=== PATIENT | male | born 1945 | race Caucasian/White ===

== ENCOUNTER 2016-10-31 19:16 | Inpatient (IN) | payer MEDICARE, MEDICAID ==
--- NOTE | 2016-10-31 19:59 | ED Physician Chart ---
Chief Complaint/HPI - Patient Information Date Seen:: 10/31/16 Time Seen:: 19:54 Chief Complaint:: confusion History of Present Illness:: THIS IS A 71 YO MALE WITH ALTERED MENTAL STATUS PATIENT.HE HAS POOR AFFECT WITH A PSYCH DISORDER SENT FROM A HALFWAY FOR EVALUATION AND TREATMENT. HE DENIES HAVING ANY PAIN OR DIFFICULTY THINKING. Allergies:: Allergies Allergy/AdvReac Type Severity Reaction Status Date / Time codeine Allergy Verified 10/31/16 19:33 Vitals:: Vital Signs - 8 hr 10/31/16 19:20 Temp 99.3 F HR 83 RR 20 BP 195/104 O2 Sat % 97 Historian:: Patient, EMS, Medical Records Review:: Nurse's Note Reviewed, Old Chart Reviewed, Transfer documents Reviewed Review of Systems - Review of Systems General/Constitutional: No fever, No chills, No weight loss, No weakness, No diaphoresis, No edema, No loss of appetite Skin: No skin lesions, No rash, No bruising, Other (THERE ARE (8) SARI ON THE SCALP FROM A RECENT LACERATION.) Head: No headache, No light-headedness Eyes: No loss of vision, No pain, No diplopia ENT: No earache, No nasal drainage, No sore throat, No tinnitus Neck: No neck pain, No swelling, No thyromegaly, No stiffness, No mass noted Cardio Vascular: No chest pain, No palpitations, No PND, No orthopnea, No edema Pulmonary: No SOB, No cough, No sputum, No wheezing GI: No nausea, No vomiting, No diarrhea, No pain, No melena, No hematochezia, No constipation, No hematemesis G/U: No dysuria, No frequency, No hematuria Musculoskeletal: No bone or joint pain, No back pain, No muscle pain Endocrine: No polyuria, No polydipsia Psychiatric: Prior psych history, No depression, No anxiety, No suicidal ideation, Other (PSYCHOSIS) Hematopoietic: No bruising, No lymphadenopathy Allergic/Immuno: No urticaria, No angioedema Neurological: No syncope, No focal symptoms, No weakness, No paresthesia, No headache, No seizure, No dizziness, No confusion, No vertigo Past Medical History - Past Medical History Obtainable: Yes Past Medical History: HTN, DM, CAD, Dementia Family History: None Social History: Non Smoker, No Alcohol, No Drug Use, Care Facility Surgical History: None Psychiatricy History: Dementia Medication: Reviewed Family Medical History - Family Member Mother History Unknown: Yes Physical Exam - Physical Examination General/Constitutional: Awake, Well-developed, well-nourished, Alert, No distress, GCS 15, Non-toxic appearing, Ambulatory Head: Atraumatic Eyes: Lids, conjuctiva normal, PERRL, EOMI Skin: Nl inspection, No rash, No skin lesions, No ecchymosis, Well hydrated, No lymphadenopathy ENMT: External ears, nose nl, Nasal exam nl, Lips, teeth, gums nl Neck: Nontender, Full ROM w/o pain, No JVD, No nuchal rigidity, No bruit, No mass, No stridor Respiratory: Nl effort/Exclusion, Clear to Auscultation, No Wheeze/Rhonchi/Rales Cardio Vascular: RRR, No murmur, gallop, rubs, NL S1 S2 GI: No tenderness/rebounding/guarding, No organomegaly, No hernia, Normal BS's, Nondistended, No mass/bruits, No McBurney tenderness : No CVA tenderness Extremities: No tenderness or effusion, Full ROM, normal strength in all extremities, No edema, Normal digits & nails Neuro/Psych: DTR's symmetric, Normal sensory exam, Normal motor strength, Mood normal, Normal gait, No focal deficits Other Neuro/Psych comments:: THE PATIENT IS DISORIENTED TIMES FOUR AND HAVE MOMENT OF CONFUSION. Misc: normal gait, Normal back, No paraspinal tenderness Labs/Radiology/EKG Results - Lab Results Results: Abnormal Lab Results 10/31/16 10/31/16 10/31/16 20:01 20:01 20:01 WBC 11.8 H RBC 4.88 Hgb 15.1 Hct 45.7 MCV 93.7 MCH 31.0 MCHC Differential 33.1 RDW 12.1 Plt Count 268 MPV 8.2 Neutrophils % 78.2 Lymphocytes % 12.8 L Monocytes % 6.5 Eosinophils % 1.3 Basophils % 1.2 PT INR PTT (Actin FS) Sodium 136 Potassium 3.8 Chloride 103 Carbon Dioxide 26.3 Anion Gap 10.5 BUN 11 Creatinine 0.7 Est GFR ( Amer) TNP Est GFR (Non-Af Amer) TNP BUN/Creatinine Ratio 15.7 Glucose 191 H POC Glucose Hemoglobin A1c % Calcium 9.8 Total Bilirubin 0.6 AST 17 ALT 26 Alkaline Phosphatase 86 Troponin I Total Protein 7.0 Albumin 3.9 L Globulin 3.1 Albumin/Globulin Ratio 1.3 Triglycerides 124 Cholesterol 155 LDL Cholesterol Direct 109 HDL Cholesterol 35 TSH Urine Source Urine Color Urine Clarity Urine pH Ur Specific Crete Urine Protein Urine Glucose (UA) Urine Ketones Urine Blood Urine Nitrate Urine Bilirubin Urine Urobilinogen Ur Leukocyte Esterase Urine RBC Urine WBC Ur Epithelial Cells Urine Bacteria RPR 10/31/16 10/31/16 10/31/16 20:01 20:01 20:01 WBC RBC Hgb Hct MCV MCH MCHC Differential RDW Plt Count MPV Neutrophils % Lymphocytes % Monocytes % Eosinophils % Basophils % PT 9.9 INR 0.95 PTT (Actin FS) 24.3 L Sodium Potassium Chloride Carbon Dioxide Anion Gap BUN Creatinine Est GFR ( Amer) Est GFR (Non-Af Amer) BUN/Creatinine Ratio Glucose POC Glucose Hemoglobin A1c % Calcium Total Bilirubin AST ALT Alkaline Phosphatase Troponin I < 0.01 L Total Protein Albumin Globulin Albumin/Globulin Ratio Triglycerides Cholesterol LDL Cholesterol Direct HDL Cholesterol TSH 0.94 Urine Source Urine Color Urine Clarity Urine pH Ur Specific [place] Urine Protein Urine Glucose (UA) Urine Ketones Urine Blood Urine Nitrate Urine Bilirubin Urine Urobilinogen Ur Leukocyte Esterase Urine RBC Urine WBC Ur Epithelial Cells Urine Bacteria RPR 10/31/16 10/31/16 10/31/16 20:01 20:01 20:06 WBC RBC Hgb Hct MCV MCH MCHC Differential RDW Plt Count MPV Neutrophils % Lymphocytes % Monocytes % Eosinophils % Basophils % PT INR PTT (Actin FS) Sodium Potassium Chloride Carbon Dioxide Anion Gap BUN Creatinine Est GFR ( Amer) Est GFR (Non-Af Amer) BUN/Creatinine Ratio Glucose POC Glucose 176 H Hemoglobin A1c % 7.2 H Calcium Total Bilirubin AST ALT Alkaline Phosphatase Troponin I Total Protein Albumin Globulin Albumin/Globulin Ratio Triglycerides Cholesterol LDL Cholesterol Direct HDL Cholesterol TSH Urine Source Urine Color Urine Clarity Urine pH Ur Specific [place] Urine Protein Urine Glucose (UA) Urine Ketones Urine Blood Urine Nitrate Urine Bilirubin Urine Urobilinogen Ur Leukocyte Esterase Urine RBC Urine WBC Ur Epithelial Cells Urine Bacteria RPR NONREACTIVE 10/31/16 23:00 WBC RBC Hgb Hct MCV MCH MCHC Differential RDW Plt Count MPV Neutrophils % Lymphocytes % Monocytes % Eosinophils % Basophils % PT INR PTT (Actin FS) Sodium Potassium Chloride Carbon Dioxide Anion Gap BUN Creatinine Est GFR ( Amer) Est GFR (Non-Af Amer) BUN/Creatinine Ratio Glucose POC Glucose Hemoglobin A1c % Calcium Total Bilirubin AST ALT Alkaline Phosphatase Troponin I Total Protein Albumin Globulin Albumin/Globulin Ratio Triglycerides Cholesterol LDL Cholesterol Direct HDL Cholesterol TSH Urine Source CLEAN C Urine Color YELLOW Urine Clarity CLEAR Urine pH 7.0 Ur Specific [place] 1.015 Urine Protein NEGATIVE Urine Glucose (UA) NEGATIVE Urine Ketones NEGATIVE Urine Blood NEGATIVE Urine Nitrate NEGATIVE Urine Bilirubin NEGATIVE Urine Urobilinogen 0.2 Ur Leukocyte Esterase NEGATIVE Urine RBC 0-2 H Urine WBC 0-2 Ur Epithelial Cells OCCASIONAL Urine Bacteria OCCASIONAL RPR - Radiology Results Results: CHEST X-RAY = NAD Assessment - Assessment General Assessment: PSYCHOSIS ED Septic Shock - . Is Septic Shock (SBP<90, OR Lactate>4 mmol\L) present?: No - <6hrs of presentation: Vital Signs: Vital Signs - 8 hr 10/31/16 19:20 Temp 99.3 F HR 83 RR 20 BP 195/104 O2 Sat % 97 Reassessment (Disposition) - Reassessment Reassessment Condition:: Improved - Diagnosis Diagnosis:: PSYCHOSIS - Patient Disposition Discharge/Transfer:: Acute Care w/in this hosp Admitting Medical Physician:: Niles Yun Admitting Psych Physician:: iKm Andrea Condition at Disposition:: Improved ED Discharge Plan - Patient Disposition Admit/Discharge/Transfer: Other Care w/in this hosp Condition at Disposition: Improved
[2016-10-31 20:12] LABS: % BASOPHILS 1.2 % (0.0-2.0); % EOSINOPHILS 1.3 % (0.0-5.0); % LYMPHOCYTES 12.8 % (20.0-50.0); % MONOCYTES 6.5 % (2.0-10.0); % NEUTROPHILS 78.2 % (40.0-80.0); HEMATOCRIT 45.7 % (39.0-49.0); HEMOGLOBIN 15.1 gm/dL (12.6-17.4); MEAN CELL VOLUME 93.7 fl (80-99); MEAN CORPUSCULAR HGB CONC 33.1 pg (28.0-36.0); MEAN PLATELET VOLUME 8.2 fl; NEUTROPHILE ABSOLUTE 9.2 Th/cmm (1.8-8.0); PLATELET COUNT 268 Th/cmm (150-400); RED BLOOD COUNT 4.88 Mil/cmm (3.80-5.80); RED CELL DISTRIBUTION WIDTH 12.1 % (11.5-20.0); WHITE BLOOD COUNT 11.8 Th/cmm (4.8-10.8)
[2016-10-31 20:27] LABS: INR 0.95 (0.5-1.4); PROTHROMBIN TIME (TEST) 9.9 SECONDS (9.5-11.5)
[2016-10-31] MEDS ORDERED: NIFEdipine 30 mg ER Tab PO ONE (20:27)
[2016-10-31 20:28] LABS: CHOLESTEROL 155 mg/dL (<200); TRIGLYCERIDES 124 mg/dL (<150)
[2016-10-31 20:30] LABS: ALB/GLOB RATIO 1.3 (1.0-1.8); ALKALINE PHOSPHATASE 86 U/L (34-104); ANION GAP 10.5 (7.0-16.0); BILIRUBIN,TOTAL 0.6 mg/dL (0.3-1.0); BUN - UREA NITROGEN 11 mg/dL (7-25); BUN/CREATININE RATIO 15.7; CALCIUM SERUM 9.8 mg/dL (8.6-10.3); CARBON DIOXIDE 26.3 mEq/L (21.0-31.0); CHLORIDE 103 mEq/L (98-107); CREATININE - SERUM 0.7 mg/dL (0.7-1.3); GLUCOSE 191 mg/dL (70-105); POTASSIUM SERUM 3.8 mEq/L (3.5-5.1); SGOT 17 U/L (13-39); SGPT/ALT 26 U/L (7-52); SODIUM SERUM 136 mEq/L (136-145)
[2016-10-31 23:20] LABS: URINE BILIRUBIN NEGATIVE (NEGATIVE); URINE COLOR YELLOW; URINE GLUCOSE (UA) NEGATIVE (NEGATIVE); URINE KETONE NEGATIVE (NEGATIVE)
[2016-10-31 23:21] LABS: URINE BACTERIA OCCASIONAL /hpf (NONE SEEN); URINE BLOOD NEGATIVE (NEGATIVE); URINE EPITHELIAL CELLS OCCASIONAL /lpf (FEW); URINE PROTEIN NEGATIVE (NEGATIVE); URINE RBC 0-2 /hpf (0-5); URINE UROBILINOGEN 0.2 E.U./dL (0.2 - 1.0); URINE WBC 0-2 /hpf (0-5)
[2016-10-31] MEDS ORDERED: Magnesium Hydroxide (MOM) 30 mL UDC PO PRN (23:55)
[2016-10-31] MEDS ORDERED: Maalox 30 mL Cup PO PRN (23:55)
--- NOTE | 2016-11-01 00:07 | Admit Criteria Form ---
Admit Criteria Forms - Admit Criteria Diagnosis: MENTAL STATUS CHANGE Clinical Indications for Inpatient Care (Place 'X' for any and all applicable criteria): Ongoing inpatient care may be needed for 1 or more of the following(1)(2)(3)(5)( 6): [X ]I. Suspected serious etiology (eg, medical disorder, HOUSE MOVING SUPERVISOR event) of altered mental status [ ]II. Danger to self or others not manageable at lower level of care [ ]III. Grave disability (eg, inability to perform self care necessary at lower level of care) [ ]IV. Agitation or inappropriate behavior interfering with care for primary condition (eg, attempting to discontinue lines or drains prematurely, unable to cooperate with respiratory care) [ ]V. Delirium [A] [D][E] as described by 1 or more of the following(26): [ ]a) Delirium due to alcohol or sedative [F] withdrawal [ ]b) Delirium of uncertain etiology that has not responded to appropriate empiric treatment [ ]c) Delirium that prevents performance of a life-sustaining function (eg, feeding or hydrating oneself) [ ]. General contraindications and/or Inappropriate clinical situations for Observational Care in patients with Mental Status Change, when ANY ONE of the following is required: [ ]a) Prediction of prolongation of LOS based on ANY ONE of the following may be considered as a contraindication for observational care 2, 3, 4, 5, 6, 7, 8, 9, 10, 11 [ ]i) Age > 65 yrs. [ ]ii) Patient arriving by ambulance [ ]iii) Patient with high acuity [ ]iv) Patient requiring vital sign monitoring [ ]v) Patient on IV medication [ ]b) Systolic blood pressures greater than or equal to 180mmHg 3, 12 [ ]c) Patient with altered mental status including delirium and other alteration of consciousness, (3) [ ]d) Patient whose discharge disposition will be to a senior living home or rehabilitation home should not be managed in Emergency Department Observation Unit. CMS rule requires 3 days hospital stay before such placement.3,13 [ ]e) Patient with failure to thrive due to broad array of etiologies 3,16,17 [ ]f) Inability to ambulate 3,14 Extended stay beyond goal length of stay for the primary condition may be needed until ALL of the following are present(3)(5): [ ]a) Underlying medical etiology of mental status change is absent, or has been established and adequately treated [ ]b) Danger to self or others is absent or manageable at lower level of care. [ ]c) Behavior crisis management, including physical or chemical restraints, is not required or available at lower level of car [ ]d) Substance or alcohol withdrawal is absent or manageable at lower level of care. [ ]e) Behavioral symptoms (eg, agitation, somnolence, inappropriate behavior) are absent, or are manageable at lower level of care. The original [facility] content created by [facility] has been revised. The portions of the content which have been revised are identified through the use of italic text or in bold, and [facility] has neither reviewed nor approved the modified material. All other unmodified content is copyright [facility]. Please see references footnoted in the original [facility] edition 2016 Admit Criteria Met?: Yes
[2016-11-01] MEDS: INSULIN ASPART SLIDING SCALE 100 UNITS/ML UNIT SUBQ SCH ×4 (06:43→20:48)
[2016-11-01] MEDS: Multivitamin Tab PO SCH (08:51)
[2016-11-01] MEDS: Insulin Detemir 100 units/mL 10mL Vial SUBQ SCH (08:51)
--- NOTE | 2016-11-01 09:47 | Diagnostic Imaging Report ---
Portable chest x-ray History: Shortness of breath Allowing for portable technique the heart size is normal. No focal pulmonary parenchymal processes. No hilar or mediastinal abnormalities. Impression: No acute abnormalities.
--- NOTE | 2016-11-01 10:48 | History and Physical ---
History of Present Illness - HPI Chief Complaint: CONFUSION HPI: This is a 71 year old male who is a resident of [facility] who is brought here to [facility] for a 1 day history of altered mental status with increase confusion, for these reasons patient is now admitted to the Geropsych unit. Vital Signs: Last Vital Signs Temp 97.8 F 11/01/16 06:44 Pulse 78 11/01/16 06:44 Resp 20 11/01/16 06:44 BP 116/62 11/01/16 06:44 Pulse Ox 95 11/01/16 06:44 Past Medical History Cardiovascular: Report: CAD, HTN Pulmonary: Report: No Pertinent Hx COMMUNICATION LECTURER: Report: No Pertinent Hx GI: Report: No Pertinent Hx Psych: Report: Psychosis, Other (dementia) Musculoskeletal: Report: No Pertinent Hx Rheumatologic: Report: No pertinent Hx Infectious Disease: Report: No Pertinent Hx Renal/: Report: No Pertinent Hx Endocrine: Report: Diabetes - Past Surgical History Past Surgical History: No pertinent Hx Family Medical History - Family Member Mother History Unknown: Yes (noncontributory) Ethnicity: Unknown Living Status: Unknown Hx Family Cancer: (unknown) Hx Family Coronary Artery Disease: (unknown) Hx Family Congestive Heart Failure: (unknown) Hx Family Hypertension: (unknown) Hx Family Stroke: (unknown) Hx Family Diabetes: (unknown) Hx Family Seizures: (unknown) Hx Family Dementia: (unknown) Hx Family AIDS: (unknown) Hx Family COPD: (unknown) Hx Family Hepatitis: (unknown) Hx Family Psychiatric Problems: (unknown) Hx Family Tuberculosis: (unknown) Social History Smoke: No Alcohol: None Drugs: None Lives: Long Term Domestic Violence: Negative Health Maintenance Health Maintenance: Pneumococcal Vaccine - Medications Home Medications: Home Medication Medication Instructions Recorded Type Carvedilol [Coreg] 12.5 mg PO BID 10/31/16 History Diltiazem HCl [Diltiazem HCl] 360 mg PO DAILY 10/31/16 History Hydralazine [Apresoline] 10 mg PO BID 10/31/16 History Hydrochlorothiazide 12.5 mg PO DAILY 10/31/16 History Insulin Aspart, Recombinant See Protocol SUBQ ACHS PRN 10/31/16 History [NovoLOG] Insulin Glargine,Hum.rec.anlog 11 unit SQ DAILY 10/31/16 History [Lantus Solostar] Multivitamin w/ Minerals 1 tab PO DAILY 10/31/16 History [Theragran M] Potassium Chloride 10 meq PO BID 10/31/16 History Quinapril HCl [Quinapril HCl] 40 mg PO DAILY 10/31/16 History Tramadol HCl [Ultram] 25 mg PO Q4HR PRN 10/31/16 History Tramadol HCl [Ultram] 50 mg PO Q4HR PRN 10/31/16 History metFORMIN [Glucophage] 500 mg PO BID 10/31/16 History - Allergies Allergies/Adverse Reactions: Allergies Allergy/AdvReac Type Severity Reaction Status Date / Time codeine Allergy Verified 10/31/16 19:33 Review of Systems - Review of Systems Constitutional: Denies: Fever, Chills Eyes: Denies: Pain, Vision Change ENT: Denies: Ear Pain, Ear Discharge, Nose Pain, Nose Discharge Respiratory: Denies: Cough, Dry, Shortness of Breath Cardiovascular: Denies: Chest Pain, Palpitations, Orthopnea Gastrointestinal: Denies: Nausea, Vomiting, Abdominal Pain, Diarrhea Genitourinary: Denies: Dysuria, Frequency Musculoskeletal: Denies: Neck Pain, Shoulder Pain, Arm Pain Skin: Denies: Rash Neurological: Report: Confusion. Denies: Weakness, Numbness, Change in Speech Physical Exam - Physical Exam HEENT: Report: Ears Nose Throat Within Normal Limits, Pharnyx Within Normal Limits Neck: Report: WNL Cardiovascular Systems: Report: +s1/s2 noted, Regular, Rate and Rhythm, no murmurs noted Respiratory: Report: Clear to Auscultation of lung sanchez Abdomen: Report: Non-tender to palpation Extremities: Report: Non-tender to palpation. Skin: Report: Color of skin is within normal limits Neuro/Psych: Report: A+Ox3 (with confusion) - Lab Results All Lab Results last 24 hours: Laboratory Last Values WBC 11.8 Th/cmm (4.8-10.8) H 10/31/16 20:01 RBC 4.88 Mil/cmm (3.80-5.80) 10/31/16 20:01 Hgb 15.1 gm/dL (12.6-17.4) 10/31/16 20:01 Hct 45.7 % (39.0-49.0) 10/31/16 20:01 MCV 93.7 fl (80-99) 10/31/16 20: MCH 31.0 pg (27.0-31.0) 10/31/16 20: MCHC Differential 33.1 pg (28.0-36.0) 10/31/16 20: RDW 12.1 % (11.5-20.0) 10/31/16 20:01 Plt Count 268 Th/cmm (150-400) 10/31/16 20: MPV 8.2 fl 10/31/16 20: Neutrophils % 78.2 % (40.0-80.0) 10/31/16 20: Lymphocytes % 12.8 % (20.0-50.0) L 10/31/16 20: Monocytes % 6.5 % (2.0-10.0) 10/31/16 20: Eosinophils % 1.3 % (0.0-5.0) 10/31/16 20: Basophils % 1.2 % (0.0-2.0) 10/31/16 20: PT 9.9 SECONDS (9.5-11.5) 10/31/16 20: INR 0.95 (0.5-1.4) 10/31/16 20: PTT (Actin FS) 24.3 SECONDS (26.0-38.0) L 10/31/16 20:01 Sodium 136 mEq/L (136-145) 10/31/16 20:01 Potassium 3.8 mEq/L (3.5-5.1) 10/31/16 20: Chloride 103 mEq/L (98-107) 10/31/16 20: Carbon Dioxide 26.3 mEq/L (21.0-31.0) 10/31/16 20: Anion Gap 10.5 (7.0-16.0) 10/31/16 20: BUN 11 mg/dL (7-25) 10/31/16 20: Creatinine 0.7 mg/dL (0.7-1.3) 10/31/16 20: Est GFR ( Amer) TNP 10/31/16 20: Est GFR (Non-Af Amer) TNP 10/31/16 20: BUN/Creatinine Ratio 15.7 10/31/16 20:01 Glucose 191 mg/dL (70-105) H 10/31/16 20:01 POC Glucose 203 MG/DL (70 - 105) H 11/01/16 06:39 Hemoglobin A1c % 7.2 % (4.0-6.0) H 10/31/16 20:01 Calcium 9.8 mg/dL (8.6-10.3) 10/31/16 20:01 Total Bilirubin 0.6 mg/dL (0.3-1.0) 10/31/16 20:01 AST 17 U/L (13-39) 10/31/16 20:01 ALT 26 U/L (7-52) 10/31/16 20:01 Alkaline Phosphatase 86 U/L (34-104) 10/31/16 20:01 Troponin I < 0.01 ng/mL (0.01-0.05) L 10/31/16 20:01 Total Protein 7.0 gm/dL (6.0-8.3) 10/31/16 20:01 Albumin 3.9 gm/dL (4.2-5.5) L 10/31/16 20:01 Globulin 3.1 gm/dL 10/31/16 20:01 Albumin/Globulin Ratio 1.3 (1.0-1.8) 10/31/16 20:01 Triglycerides 124 mg/dL (<150) 10/31/16 20:01 Cholesterol 155 mg/dL (<200) 10/31/16 20:01 LDL Cholesterol Direct 109 mg/dL (75-193) 10/31/16 20:01 HDL Cholesterol 35 mg/dL (23-92) 10/31/16 20:01 TSH 0.94 uIU/ml (0.34-5.60) 10/31/16 20:01 Urine Source CLEAN C 10/31/16 23:00 Urine Color YELLOW 10/31/16 23:00 Urine Clarity CLEAR (CLEAR) 10/31/16 23:00 Urine pH 7.0 10/31/16 23:00 Ur Specific [place] 1.015 (1.005-1.030) 10/31/16 23:00 Urine Protein NEGATIVE mg/dL (NEGATIVE) 10/31/16 23:00 Urine Glucose (UA) NEGATIVE mg/dL (NEGATIVE) 10/31/16 23:00 Urine Ketones NEGATIVE mg/dL (NEGATIVE) 10/31/16 23:00 Urine Blood NEGATIVE (NEGATIVE) 10/31/16 23:00 Urine Nitrate NEGATIVE (NEGATIVE) 10/31/16 23:00 Urine Bilirubin NEGATIVE (NEGATIVE) 10/31/16 23:00 Urine Urobilinogen 0.2 E.U./dL (0.2 - 1.0) 10/31/16 23:00 Ur Leukocyte Esterase NEGATIVE (NEGATIVE) 10/31/16 23:00 Urine RBC 0-2 /hpf (0-5) H 10/31/16 23:00 Urine WBC 0-2 /hpf (0-5) 10/31/16 23:00 Ur Epithelial Cells OCCASIONAL /lpf (FEW) 10/31/16 23:00 Urine Bacteria OCCASIONAL /hpf (NONE SEEN) 10/31/16 23:00 RPR NONREACTIVE (NONREACTIVE) 10/31/16 20:01 Laboratory Results - last 24 hr 11/01/16 06:39 POC Glucose 203 H - Assessment Assessment: HTN CAD DM-2 DEMENTIA PSYCHOSIS - Plan Plan: continue patients bp medications monitor for s/sx of hypo/hyperglycemia fall precautions psych to follow patient continue current plan of care
[2016-11-02] MEDS: INSULIN ASPART SLIDING SCALE 100 UNITS/ML UNIT SUBQ SCH ×4 (06:40→20:37)
[2016-11-02] MEDS ORDERED: QUINAPRIL HCL 40 MG PO SCH (09:00)
[2016-11-02] MEDS: Multivitamin Tab PO SCH (09:04)
[2016-11-02] MEDS: Diltiazem CD 180 mg C24 PO SCH (09:04)
[2016-11-02] MEDS: Insulin Detemir 100 units/mL 10mL Vial SUBQ SCH (09:18)
[2016-11-03] MEDS: INSULIN ASPART SLIDING SCALE 100 UNITS/ML UNIT SUBQ SCH ×4 (06:33→21:40)
--- NOTE | 2016-11-03 09:39 | General Progress Note ---
Subjective - Review of Systems Subjective: Patient isn't examined. Patient's lying comfortable. Patient denies any chest pain, shortness of breath, palpitation, dizziness, headache, diarrhea, hematuria , seizure. Objective - Results Result Diagrams: 10/31/16 20:10/31/16 20: Recent Labs: Laboratory Last Values WBC 11.8 Th/cmm (4.8-10.8) H 10/31/16 20: RBC 4.88 Mil/cmm (3.80-5.80) 10/31/16 20: Hgb 15.1 gm/dL (12.6-17.4) 10/31/16 20: Hct 45.7 % (39.0-49.0) 10/31/16: MCV 93.7 fl (80-99) 10/31/16 20: MCH 31.0 pg (27.0-31.0) 10/31/16: MCHC Differential 33.1 pg (28.0-36.0) 10/31/16 20: RDW 12.1 % (11.5-20.0) 10/31/16 20: Plt Count 268 Th/cmm (150-400) 10/31/16 20: MPV 8.2 fl 10/31/16 20: Neutrophils % 78.2 % (40.0-80.0) 10/31/16 20: Lymphocytes % 12.8 % (20.0-50.0) L 10/31/16 20: Monocytes % 6.5 % (2.0-10.0) 10/31/16 20: Eosinophils % 1.3 % (0.0-5.0) 10/31/16 20: Basophils % 1.2 % (0.0-2.0) 10/31/16 20: PT 9.9 SECONDS (9.5-11.5) 10/31/16 20: INR 0.95 (0.5-1.4) 10/31/16 20: PTT (Actin FS) 24.3 SECONDS (26.0-38.0) L 10/31/16 20: Sodium 136 mEq/L (136-145) 10/31/16 20: Potassium 3.8 mEq/L (3.5-5.1) 10/31/16 20:01 Chloride 103 mEq/L (98-107) 10/31/16 20:01 Carbon Dioxide 26.3 mEq/L (21.0-31.0) 10/31/16 20:01 Anion Gap 10.5 (7.0-16.0) 10/31/16 20:01 BUN 11 mg/dL (7-25) 10/31/16 20:01 Creatinine 0.7 mg/dL (0.7-1.3) 10/31/16 20:01 Est GFR ( Amer) TNP 10/31/16 20:01 Est GFR (Non-Af Amer) TNP 10/31/16 20:01 BUN/Creatinine Ratio 15.7 10/31/16 20:01 Glucose 191 mg/dL (70-105) H 10/31/16 20:01 POC Glucose 138 MG/DL (70 - 105) H 11/03/16 06:14 Hemoglobin A1c % 7.2 % (4.0-6.0) H 10/31/16 20:01 Calcium 9.8 mg/dL (8.6-10.3) 10/31/16 20:01 Total Bilirubin 0.6 mg/dL (0.3-1.0) 10/31/16 20:01 AST 17 U/L (13-39) 10/31/16 20:01 ALT 26 U/L (7-52) 10/31/16 20:01 Alkaline Phosphatase 86 U/L (34-104) 10/31/16 20:01 Troponin I < 0.01 ng/mL (0.01-0.05) L 10/31/16 20:01 Total Protein 7.0 gm/dL (6.0-8.3) 10/31/16 20:01 Albumin 3.9 gm/dL (4.2-5.5) L 10/31/16 20:01 Globulin 3.1 gm/dL 10/31/16 20:01 Albumin/Globulin Ratio 1.3 (1.0-1.8) 10/31/16 20:01 Triglycerides 124 mg/dL (<150) 10/31/16 20:01 Cholesterol 155 mg/dL (<200) 10/31/16 20:01 LDL Cholesterol Direct 109 mg/dL (75-193) 10/31/16 20:01 HDL Cholesterol 35 mg/dL (23-92) 10/31/16 20:01 TSH 0.94 uIU/ml (0.34-5.60) 10/31/16 20:01 Urine Source CLEAN C 10/31/16 23:00 Urine Color YELLOW 10/31/16 23:00 Urine Clarity CLEAR (CLEAR) 10/31/16 23:00 Urine pH 7.0 10/31/16 23:00 Ur Specific [place] 1.015 (1.005-1.030) 10/31/16 23:00 Urine Protein NEGATIVE mg/dL (NEGATIVE) 10/31/16 23:00 Urine Glucose (UA) NEGATIVE mg/dL (NEGATIVE) 10/31/16 23:00 Urine Ketones NEGATIVE mg/dL (NEGATIVE) 10/31/16 23:00 Urine Blood NEGATIVE (NEGATIVE) 10/31/16 23:00 Urine Nitrate NEGATIVE (NEGATIVE) 10/31/16 23:00 Urine Bilirubin NEGATIVE (NEGATIVE) 10/31/16 23:00 Urine Urobilinogen 0.2 E.U./dL (0.2 - 1.0) 10/31/16 23:00 Ur Leukocyte Esterase NEGATIVE (NEGATIVE) 10/31/16 23:00 Urine RBC 0-2 /hpf (0-5) H 10/31/16 23:00 Urine WBC 0-2 /hpf (0-5) 10/31/16 23:00 Ur Epithelial Cells OCCASIONAL /lpf (FEW) 10/31/16 23:00 Urine Bacteria OCCASIONAL /hpf (NONE SEEN) 10/31/16 23:00 RPR NONREACTIVE (NONREACTIVE) 10/31/16 20:01 - Physical Exam Vitals and I&O: Vital Signs Temp 98.5 F 11/03/16 06:48 Pulse 63 11/03/16 06:48 Resp 18 11/03/16 06:48 BP 135/69 11/03/16 06:48 Pulse Ox 97 11/03/16 06:48 Intake & Output 11/02/16 11/03/16 11/03/16 18:59 06:59 18:59 Intake Total 1000 Balance 1000 Intake: Oral 1000 Other: # Voids 4 2 # Bowel Movements 1 Active Medications: Current Medications Acetaminophen (Tylenol) 650 mg PO Q4HR PRN PRN Reason: Mild Pain / Temp above 100 Stop: 12/30/16 23:54 Al Hydrox/Mg Hydrox/Simethicone (Maalox) 30 ml PO Q4HR PRN PRN Reason: GI DISTRESS Stop: 12/30/16 23:54 Carvedilol (Coreg) 12.5 mg PO BID [facility] Stop: 01/01/17 08:59 Last Admin: 11/02/16 16:54 Dose: Not Given Diltiazem HCl (Cardizem Cd) 360 mg PO DAILY [facility] Stop: 01/01/17 08:59 Last Admin: 11/02/16 09:04 Dose: 360 mg Hydralazine HCl (Apresoline) 10 mg PO BID [facility] Stop: 01/01/17 08:59 Last Admin: 11/02/16 16:54 Dose: Not Given Hydrochlorothiazide (Hctz) 12.5 mg PO DAILY [facility] Stop: 01/01/17 08:59 Last Admin: 11/02/16 09:04 Dose: 12.5 mg Insulin Aspart (Novolog Insulin Sliding Scale) 0 units SUBQ ACHS [facility] PRN Reason: Protocol Stop: 12/31/16 07:29 Last Admin: 11/03/16 06:33 Dose: Not Given Insulin Detemir (Levemir Insulin) 11 units SUBQ DAILY [facility] PRN Reason: Protocol Stop: 12/31/16 08:59 Last Admin: 11/02/16 09:18 Dose: 11 units Lisinopril (Zestril) 20 mg PO DAILY [facility] Stop: 01/01/17 08:59 Last Admin: 11/02/16 09:04 Dose: 20 mg Lorazepam (Ativan) 0.5 mg PO Q4HR PRN; Protocol PRN Reason: Anxiety Stop: 11/30/16 23:54 Magnesium Hydroxide (Milk Of Magnesia) 30 ml PO HS PRN PRN Reason: Constipation Metformin HCl (Glucophage) 500 mg PO BID [facility] Stop: 12/31/16 08:59 Last Admin: 11/02/16 17:20 Dose: 500 mg Multivitamins/Vitamin C (Theragran) 1 tab PO DAILY [facility] Stop: 12/31/16 08:59 Last Admin: 11/02/16 09:04 Dose: 1 tab Risperidone (Risperdal) 0.5 mg PO BID [facility] PRN Reason: Protocol Stop: 12/31/16 16:59 Last Admin: 11/02/16 17:20 Dose: 0.5 mg Tramadol HCl (Ultram) 25 mg PO Q4HR PRN PRN Reason: Pain (Moderate) Stop: 12/31/16 20:06 Tramadol HCl (Ultram) 50 mg PO Q4HR PRN PRN Reason: Pain (Severe) Stop: 12/31/16 20:06 Zolpidem Tartrate (Ambien) 5 mg PO HS PRN PRN Reason: Insomnia Stop: 12/30/16 23:54 General: Alert, No acute distress HEENT: Atraumatic, PERRLA, EOMI Neck: Supple Cardiovascular: Regular rate, Normal S1, Normal S2 Lungs: Clear to auscultation Abdomen: Bowel sounds, Soft, Other (no hepatosplenomegaly) Extremities: Other (no clubbing, cyanosis, edema.) Neurological: Normal speech, Cranial nerves 3-12 NL, Other (lower extremity weakness.) Skin: Significant lesion (dark pigmented lesions on both lower extremities.) Psych/Mental Status: Mood NL Assessment/Plan - Assessment Assessment: Diabetes mellitus. Hypertension. Coronary artery disease. Paroxysmal atrial fibrillation. DJD. Psychiatric disorder. Fall risk Debility - Plan Plan: Monitor glucose, vital signs, behavior. Sliding scale insulin. Oral hypoglycemic agent. Antihypertensive medications. Monitor for falls. General nursing care. Psychiatric medications and follow-up. Medications reviewed. Symptoms control. Physical therapy and occupational therapy. Care plan reviewed and discussed. Nutritional Asmnt/Malnutr-PDOC - Dietary Evaluation Malnutrition Findings (Please click <Entered> for more info): Nutritional Asmnt/Malnutrition Start: 11/01/16 12: 43 Text: Status: Complete Freq: Document 11/01/16 12:43 GSUN (Rec: 11/01/16 12:59 GSUN [email or web address]) Nutritional Asmnt/Malnutrition Patient General Information Nutritional Screening High Risk Screening Diagnosis Reason for visit: psychosis Pertinent Medical Hx/Surgical Hx CAD, HTN, psychosis, dementia, DM Subjective Information 71 year old male from SNF. Spoke to pt in laisha chair in rec room. Pt is a questionable historian, goes off topic, fell asleep mid sentence several times, inappropriate for nutrition edu. Pt stated good appetite, breakfast was great. Pt reported UBW 214lb, admitted to recent weight loss , however could not eleborate. Pt appeared overweight, no significant wasting noted. Current Diet Order/ Nutrition Support Ground, cardiac, Boost Glucose Control BID Pertinent Medications Maalox, Novolog, Levemir, MOM, Glucophage, Theragran Pertinent Labs /: A1c 7.2H, glucose 191H Nutritional Hx/Data Height 1.88 m Height (Calculated Centimeters) 188.0 Current Weight (lbs) 97.069 kg Weight (Calculated Kilograms) 97.1 Weight (Calculated Grams) 81481.8 Usual body Weight (lbs) 214 [place] Body Weight 190 Recent Weight Change Yes Weight Status Overweight GI Symptoms Cultural/Ethnic/Hindu Belief Pt dislikes spinach and cauliflower. Skin Integrity/Comment: Deangelo [place]cala. 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 Problem Problem Altered nturition related laboratory values related to Etiology DM aeb Signs/Symptoms: A1c 7.2, glucose 191H Intervention/Recommendation Comments 1. Recommend [id number] in addition to current diet order . Expected Outcomes/Goals Expected Outcomes/Goals 1. PO intake to meet at least 75% of estimated nutritional needs.
[2016-11-03] MEDS: Multivitamin Tab PO SCH (09:40)
[2016-11-03] MEDS: Diltiazem CD 180 mg C24 PO SCH (09:41)
[2016-11-03] MEDS: Insulin Detemir 100 units/mL 10mL Vial SUBQ SCH (09:51)
[2016-11-04] MEDS: INSULIN ASPART SLIDING SCALE 100 UNITS/ML UNIT SUBQ SCH ×4 (07:07→21:21)
--- NOTE | 2016-11-04 09:03 | General Progress Note ---
Subjective - Review of Systems Subjective: Patient isn't examined. Patient's lying comfortable. Patient denies any chest pain, shortness of breath, palpitation, dizziness, headache, diarrhea, hematuria , seizure. Objective - Results Result Diagrams: 10/31/16 20:10/31/16 20: Recent Labs: Laboratory Last Values WBC 11.8 Th/cmm (4.8-10.8) H 10/31/16 20: RBC 4.88 Mil/cmm (3.80-5.80) 10/31/16 20: Hgb 15.1 gm/dL (12.6-17.4) 10/31/16 20: Hct 45.7 % (39.0-49.0) 10/31/16: MCV 93.7 fl (80-99) 10/31/16 20: MCH 31.0 pg (27.0-31.0) 10/31/16: MCHC Differential 33.1 pg (28.0-36.0) 10/31/16 20: RDW 12.1 % (11.5-20.0) 10/31/16 20: Plt Count 268 Th/cmm (150-400) 10/31/16 20: MPV 8.2 fl 10/31/16 20: Neutrophils % 78.2 % (40.0-80.0) 10/31/16 20: Lymphocytes % 12.8 % (20.0-50.0) L 10/31/16 20: Monocytes % 6.5 % (2.0-10.0) 10/31/16 20: Eosinophils % 1.3 % (0.0-5.0) 10/31/16 20: Basophils % 1.2 % (0.0-2.0) 10/31/16 20: PT 9.9 SECONDS (9.5-11.5) 10/31/16 20: INR 0.95 (0.5-1.4) 10/31/16 20: PTT (Actin FS) 24.3 SECONDS (26.0-38.0) L 10/31/16 20: Sodium 136 mEq/L (136-145) 10/31/16 20: Potassium 3.8 mEq/L (3.5-5.1) 10/31/16 20:01 Chloride 103 mEq/L (98-107) 10/31/16 20:01 Carbon Dioxide 26.3 mEq/L (21.0-31.0) 10/31/16 20:01 Anion Gap 10.5 (7.0-16.0) 10/31/16 20:01 BUN 11 mg/dL (7-25) 10/31/16 20:01 Creatinine 0.7 mg/dL (0.7-1.3) 10/31/16 20:01 Est GFR ( Amer) TNP 10/31/16 20:01 Est GFR (Non-Af Amer) TNP 10/31/16 20:01 BUN/Creatinine Ratio 15.7 10/31/16 20:01 Glucose 191 mg/dL (70-105) H 10/31/16 20:01 POC Glucose 142 MG/DL (70 - 105) H 11/04/16 05:34 Hemoglobin A1c % 7.2 % (4.0-6.0) H 10/31/16 20:01 Calcium 9.8 mg/dL (8.6-10.3) 10/31/16 20:01 Total Bilirubin 0.6 mg/dL (0.3-1.0) 10/31/16 20:01 AST 17 U/L (13-39) 10/31/16 20:01 ALT 26 U/L (7-52) 10/31/16 20:01 Alkaline Phosphatase 86 U/L (34-104) 10/31/16 20:01 Troponin I < 0.01 ng/mL (0.01-0.05) L 10/31/16 20:01 Total Protein 7.0 gm/dL (6.0-8.3) 10/31/16 20:01 Albumin 3.9 gm/dL (4.2-5.5) L 10/31/16 20:01 Globulin 3.1 gm/dL 10/31/16 20:01 Albumin/Globulin Ratio 1.3 (1.0-1.8) 10/31/16 20:01 Triglycerides 124 mg/dL (<150) 10/31/16 20:01 Cholesterol 155 mg/dL (<200) 10/31/16 20:01 LDL Cholesterol Direct 109 mg/dL (75-193) 10/31/16 20:01 HDL Cholesterol 35 mg/dL (23-92) 10/31/16 20:01 TSH 0.94 uIU/ml (0.34-5.60) 10/31/16 20:01 Urine Source CLEAN C 10/31/16 23:00 Urine Color YELLOW 10/31/16 23:00 Urine Clarity CLEAR (CLEAR) 10/31/16 23:00 Urine pH 7.0 10/31/16 23:00 Ur Specific [place] 1.015 (1.005-1.030) 10/31/16 23:00 Urine Protein NEGATIVE mg/dL (NEGATIVE) 10/31/16 23:00 Urine Glucose (UA) NEGATIVE mg/dL (NEGATIVE) 10/31/16 23:00 Urine Ketones NEGATIVE mg/dL (NEGATIVE) 10/31/16 23:00 Urine Blood NEGATIVE (NEGATIVE) 10/31/16 23:00 Urine Nitrate NEGATIVE (NEGATIVE) 10/31/16 23:00 Urine Bilirubin NEGATIVE (NEGATIVE) 10/31/16 23:00 Urine Urobilinogen 0.2 E.U./dL (0.2 - 1.0) 10/31/16 23:00 Ur Leukocyte Esterase NEGATIVE (NEGATIVE) 10/31/16 23:00 Urine RBC 0-2 /hpf (0-5) H 10/31/16 23:00 Urine WBC 0-2 /hpf (0-5) 10/31/16 23:00 Ur Epithelial Cells OCCASIONAL /lpf (FEW) 10/31/16 23:00 Urine Bacteria OCCASIONAL /hpf (NONE SEEN) 10/31/16 23:00 RPR NONREACTIVE (NONREACTIVE) 10/31/16 20:01 - Physical Exam Vitals and I&O: Vital Signs Temp 97.0 F 11/04/16 06:49 Pulse 71 11/04/16 06:49 Resp 20 11/04/16 06:49 BP 148/84 11/04/16 06:49 Pulse Ox 94 11/04/16 06:49 Intake & Output 11/03/16 11/04/16 11/04/16 18:59 06:59 18:59 Intake Total 120 Balance 120 Intake: Oral 120 Other: # Voids 2 Active Medications: Current Medications Acetaminophen (Tylenol) 650 mg PO Q4HR PRN PRN Reason: Mild Pain / Temp above 100 Stop: 12/30/16 23:54 Al Hydrox/Mg Hydrox/Simethicone (Maalox) 30 ml PO Q4HR PRN PRN Reason: GI DISTRESS Stop: 12/30/16 23:54 Carvedilol (Coreg) 12.5 mg PO BID [facility] Stop: 01/01/17 08:59 Last Admin: 11/03/16 18:04 Dose: 12.5 mg Diltiazem HCl (Cardizem Cd) 360 mg PO DAILY [facility] Stop: 01/01/17 08:59 Last Admin: 11/03/16 09:41 Dose: 360 mg Donepezil HCl (Aricept) 5 mg PO HS [facility] Stop: 01/02/17 20:59 Last Admin: 11/03/16 20:14 Dose: 5 mg Hydralazine HCl (Apresoline) 10 mg PO BID [facility] Stop: 01/01/17 08:59 Last Admin: 11/03/16 18:05 Dose: 10 mg Hydrochlorothiazide (Hctz) 12.5 mg PO DAILY [facility] Stop: 01/01/17 08:59 Last Admin: 11/03/16 09:43 Dose: 12.5 mg Insulin Aspart (Novolog Insulin Sliding Scale) 0 units SUBQ ACHS [facility] PRN Reason: Protocol Stop: 12/31/16 07:29 Last Admin: 11/04/16 07:07 Dose: Not Given Insulin Detemir (Levemir Insulin) 11 units SUBQ DAILY [facility] PRN Reason: Protocol Stop: 12/31/16 08:59 Last Admin: 11/03/16 09:51 Dose: 11 units Lisinopril (Zestril) 20 mg PO DAILY [facility] Stop: 01/01/17 08:59 Last Admin: 11/03/16 09:40 Dose: 20 mg Lorazepam (Ativan) 0.5 mg PO Q4HR PRN; Protocol PRN Reason: Anxiety Stop: 11/30/16 23:54 Magnesium Hydroxide (Milk Of Magnesia) 30 ml PO HS PRN PRN Reason: Constipation Metformin HCl (Glucophage) 500 mg PO BID [facility] Stop: 12/31/16 08:59 Last Admin: 11/03/16 18:14 Dose: 500 mg Multivitamins/Vitamin C (Theragran) 1 tab PO DAILY [facility] Stop: 12/31/16 08:59 Last Admin: 11/03/16 09:40 Dose: 1 tab Risperidone (Risperdal) 0.5 mg PO BID [facility] PRN Reason: Protocol Stop: 12/31/16 16:59 Last Admin: 11/03/16 18:04 Dose: 0.5 mg Tramadol HCl (Ultram) 25 mg PO Q4HR PRN PRN Reason: Pain (Moderate) Stop: 12/31/16 20:06 Tramadol HCl (Ultram) 50 mg PO Q4HR PRN PRN Reason: Pain (Severe) Stop: 12/31/16 20:06 Zolpidem Tartrate (Ambien) 5 mg PO HS PRN PRN Reason: Insomnia Stop: 12/30/16 23:54 General: Alert, No acute distress HEENT: Atraumatic, PERRLA, EOMI Neck: Supple Cardiovascular: Regular rate, Normal S1, Normal S2 Lungs: Clear to auscultation Abdomen: Bowel sounds, Soft, Other (no hepatosplenomegaly) Extremities: Other (no clubbing, cyanosis, edema.) Neurological: Normal speech, Cranial nerves 3-12 NL, Other (lower extremity weakness.) Skin: Significant lesion (dark pigmented lesions on both lower extremities.) Psych/Mental Status: Mood NL Assessment/Plan - Assessment Assessment: Diabetes mellitus. Hypertension. Coronary artery disease. Paroxysmal atrial fibrillation. DJD. Psychiatric disorder. Fall risk Debility - Plan Plan: Monitor glucose, vital signs, behavior. Sliding scale insulin. Oral hypoglycemic agent. Antihypertensive medications. Monitor for falls. General nursing care. Psychiatric medications and follow-up. Medications reviewed. Symptoms control. Physical therapy and occupational therapy. Care plan reviewed and discussed. Nutritional Asmnt/Malnutr-PDOC - Dietary Evaluation Malnutrition Findings (Please click <Entered> for more info): Nutritional Asmnt/Malnutrition Start: 11/01/16 12: 43 Text: Status: Complete Freq: Document 11/01/16 12:43 GSUN (Rec: 11/01/16 12:59 GSUN [email or web address]) Nutritional Asmnt/Malnutrition Patient General Information Nutritional Screening High Risk Screening Diagnosis Reason for visit: psychosis Pertinent Medical Hx/Surgical Hx CAD, HTN, psychosis, dementia, DM Subjective Information 71 year old male from SNF. Spoke to pt in laisha chair in rec room. Pt is a questionable historian, goes off topic, fell asleep mid sentence several times, inappropriate for nutrition edu. Pt stated good appetite, breakfast was great. Pt reported UBW 214lb, admitted to recent weight loss , however could not eleborate. Pt appeared overweight, no significant wasting noted. Current Diet Order/ Nutrition Support Ground, cardiac, Boost Glucose Control BID Pertinent Medications Maalox, Novolog, Levemir, MOM, Glucophage, Theragran Pertinent Labs /3: A1c 7.2H, glucose 191H Nutritional Hx/Data Height 1.88 m Height (Calculated Centimeters) 188.0 Current Weight (lbs) 97.069 kg Weight (Calculated Kilograms) 97.1 Weight (Calculated Grams) 57316.8 Usual body Weight (lbs) 214 [facility] Body Weight 190 Recent Weight Change Yes Weight Status Overweight GI Symptoms Cultural/Ethnic/Anabaptist Belief Pt dislikes spinach and cauliflower. Skin Integrity/Comment: Deangelo [place]cal[place]. 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 Problem Problem Altered nturition related laboratory values related to Etiology DM aeb Signs/Symptoms: A1c 7.2, glucose 191H Intervention/Recommendation Comments 1. Recommend [id number] in addition to current diet order . Expected Outcomes/Goals Expected Outcomes/Goals 1. PO intake to meet at least 75% of estimated nutritional needs.
[2016-11-04] MEDS: Diltiazem CD 180 mg C24 PO SCH (09:32)
[2016-11-04] MEDS: Multivitamin Tab PO SCH (09:33)
[2016-11-04] MEDS: Insulin Detemir 100 units/mL 10mL Vial SUBQ SCH (09:34)
[2016-11-05] MEDS: INSULIN ASPART SLIDING SCALE 100 UNITS/ML UNIT SUBQ SCH ×4 (07:00→21:07)
[2016-11-05] MEDS: Multivitamin Tab PO SCH (08:13)
[2016-11-05] MEDS: Diltiazem CD 180 mg C24 PO SCH (08:16)
[2016-11-05] MEDS: Insulin Detemir 100 units/mL 10mL Vial SUBQ SCH (08:16)
[2016-11-06] MEDS: INSULIN ASPART SLIDING SCALE 100 UNITS/ML UNIT SUBQ SCH ×4 (06:30→21:00)
[2016-11-06] MEDS ORDERED: Magnesium Hydroxide (MOM) 30 mL UDC PO PRN (08:36)
[2016-11-06] MEDS: Diltiazem CD 180 mg C24 PO SCH (08:37)
[2016-11-06] MEDS: Multivitamin Tab PO SCH (08:50)
[2016-11-06] MEDS: Insulin Detemir 100 units/mL 10mL Vial SUBQ SCH (08:56)
[2016-11-06 14:40] LABS: ALB/GLOB RATIO 1.3 (1.0-1.8); ALKALINE PHOSPHATASE 80 U/L (34-104); ANION GAP 8.8 (7.0-16.0); BILIRUBIN,TOTAL 0.5 mg/dL (0.3-1.0); BUN - UREA NITROGEN 34 mg/dL (7-25); BUN/CREATININE RATIO 26.2; CALCIUM SERUM 9.5 mg/dL (8.6-10.3); CARBON DIOXIDE 27.2 mEq/L (21.0-31.0); CHLORIDE 102 mEq/L (98-107); CREATININE - SERUM 1.3 mg/dL (0.7-1.3); GLUCOSE 229 mg/dL (70-105); SGOT 20 U/L (13-39); SGPT/ALT 29 U/L (7-52); SODIUM SERUM 134 mEq/L (136-145)
[2016-11-06 14:42] LABS: % EOSINOPHILS 1.4 % (0.0-5.0); % LYMPHOCYTES 13.2 % (20.0-50.0); % MONOCYTES 7.2 % (2.0-10.0); % NEUTROPHILS 78.2 % (40.0-80.0); HEMATOCRIT 39.1 % (39.0-49.0); MEAN CORPUSCULAR HEMOGLOBIN 31.3 pg (27.0-31.0); MEAN CORPUSCULAR HGB CONC 33.3 pg (28.0-36.0); MEAN PLATELET VOLUME 8.8 fl; NEUTROPHILE ABSOLUTE 8.5 Th/cmm (1.8-8.0); PLATELET COUNT 228 Th/cmm (150-400); RED BLOOD COUNT 4.16 Mil/cmm (3.80-5.80); RED CELL DISTRIBUTION WIDTH 12.2 % (11.5-20.0)
[2016-11-07] MEDS: INSULIN ASPART SLIDING SCALE 100 UNITS/ML UNIT SUBQ SCH ×4 (06:44→20:21)
[2016-11-07] MEDS: Insulin Detemir 100 units/mL 10mL Vial SUBQ SCH (09:11)
[2016-11-07] MEDS: Multivitamin Tab PO SCH (09:12)
--- NOTE | 2016-11-07 11:42 | Diagnostic Imaging Report ---
CT scan of the brain without intravenous contrast HISTORY: Dizziness Total DLP equals 674 CTDI equals 36.5 Axial sections were obtained from the base of the skull to the vertex. There is prominence/enlargement of the ventricular system size. Associated enlargement of cerebral sulci and subarachnoid cisterns. Findings are consistent with changes of generalized cerebral atrophy. 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 No acute parenchymal abnormalities. No acute cerebral hemorrhage. Hypodensity is seen within the supratentorial white matter regions without mass effect. The findings may be associated with chronic small vessel ischemic disease. No extra-axial masses or abnormal fluid collections. IMPRESSION: 1. No acute abnormalities 2. Cerebral atrophy 3. Supratentorial white matter changes that may reflect chronic small vessel ischemic disease
--- NOTE | 2016-11-07 11:43 | Diagnostic Imaging Report ---
Portable chest x-ray HISTORY: Cough The heart size is difficult to assess with portable technique in a poor inspiration. No acute focal pulmonary processes. No hilar or mediastinal abnormalities. IMPRESSION: No acute pulmonary processes
--- NOTE | 2016-11-08 06:50 | General Progress Note ---
Subjective - Review of Systems Subjective: Patient isn't examined. Patient's lying comfortable. Patient denies any chest pain, shortness of breath, palpitation, dizziness, headache, diarrhea, hematuria , seizure. Objective - Results Result Diagrams: 11/06/16 14:10 11/06/16 14:10 Recent Labs: Laboratory Last Values WBC 11.0 Th/cmm (4.8-10.8) H 11/06/16 14:10 RBC 4.16 Mil/cmm (3.80-5.80) 11/06/16 14:10 Hgb 13.0 gm/dL (12.6-17.4) D 11/06/16 14:10 Hct 39.1 % (39.0-49.0) D 11/06/16 14:10 MCV 94.0 fl (80-99) 11/06/16 14:10 MCH 31.3 pg (27.0-31.0) H 11/06/16 14:10 MCHC Differential 33.3 pg (28.0-36.0) 11/06/16 14:10 RDW 12.2 % (11.5-20.0) 11/06/16 14:10 Plt Count 228 Th/cmm (150-400) 11/06/16 14:10 MPV 8.8 fl 11/06/16 14:10 Neutrophils % 78.2 % (40.0-80.0) 11/06/16 14:10 Lymphocytes % 13.2 % (20.0-50.0) L 11/06/16 14:10 Monocytes % 7.2 % (2.0-10.0) 11/06/16 14:10 Eosinophils % 1.4 % (0.0-5.0) 11/06/16 14:10 Basophils % 0.0 % (0.0-2.0) 11/06/16 14:10 PT 9.9 SECONDS (9.5-11.5) 10/31/16 20:01 INR 0.95 (0.5-1.4) 10/31/16 20:01 PTT (Actin FS) 24.3 SECONDS (26.0-38.0) L 10/31/16 20:01 D-Dimer 1920 ng/mL (100-400) H 11/06/16 14:10 Sodium 134 mEq/L (136-145) L 11/06/16 14:10 Potassium 4.0 mEq/L (3.5-5.1) 11/06/16 14:10 Chloride 102 mEq/L (98-107) 11/06/16 14:10 Carbon Dioxide 27.2 mEq/L (21.0-31.0) 11/06/16 14:10 Anion Gap 8.8 (7.0-16.0) 11/06/16 14:10 BUN 34 mg/dL (7-25) H 11/06/16 14:10 Creatinine 1.3 mg/dL (0.7-1.3) 11/06/16 14:10 Est GFR ( Amer) TNP 11/06/16 14:10 Est GFR (Non-Af Amer) TNP 11/06/16 14:10 BUN/Creatinine Ratio 26.2 11/06/16 14:10 Glucose 229 mg/dL (70-105) H 11/06/16 14:10 POC Glucose 161 MG/DL (70 - 105) H 11/08/16 06:19 Hemoglobin A1c % 7.2 % (4.0-6.0) H 10/31/16 20:01 Calcium 9.5 mg/dL (8.6-10.3) 11/06/16 14:10 Total Bilirubin 0.5 mg/dL (0.3-1.0) 11/06/16 14:10 AST 20 U/L (13-39) 11/06/16 14:10 ALT 29 U/L (7-52) 11/06/16 14:10 Alkaline Phosphatase 80 U/L (34-104) 11/06/16 14:10 Troponin I < 0.01 ng/mL (0.01-0.05) L 11/06/16 14:10 Total Protein 6.1 gm/dL (6.0-8.3) 11/06/16 14:10 Albumin 3.4 gm/dL (4.2-5.5) L 11/06/16 14:10 Globulin 2.7 gm/dL 11/06/16 14:10 Albumin/Globulin Ratio 1.3 (1.0-1.8) 11/06/16 14:10 Triglycerides 124 mg/dL (<150) 10/31/16 20:01 Cholesterol 155 mg/dL (<200) 10/31/16 20:01 LDL Cholesterol Direct 109 mg/dL (75-193) 10/31/16 20:01 HDL Cholesterol 35 mg/dL (23-92) 10/31/16 20:01 TSH 0.94 uIU/ml (0.34-5.60) 10/31/16 20:01 Urine Source CLEAN C 10/31/16 23:00 Urine Color YELLOW 10/31/16 23:00 Urine Clarity CLEAR (CLEAR) 10/31/16 23:00 Urine pH 7.0 10/31/16 23:00 Ur Specific [place] 1.015 (1.005-1.030) 10/31/16 23:00 Urine Protein NEGATIVE mg/dL (NEGATIVE) 10/31/16 23:00 Urine Glucose (UA) NEGATIVE mg/dL (NEGATIVE) 10/31/16 23:00 Urine Ketones NEGATIVE mg/dL (NEGATIVE) 10/31/16 23:00 Urine Blood NEGATIVE (NEGATIVE) 10/31/16 23:00 Urine Nitrate NEGATIVE (NEGATIVE) 10/31/16 23:00 Urine Bilirubin NEGATIVE (NEGATIVE) 10/31/16 23:00 Urine Urobilinogen 0.2 E.U./dL (0.2 - 1.0) 10/31/16 23:00 Ur Leukocyte Esterase NEGATIVE (NEGATIVE) 10/31/16 23:00 Urine RBC 0-2 /hpf (0-5) H 10/31/16 23:00 Urine WBC 0-2 /hpf (0-5) 10/31/16 23:00 Ur Epithelial Cells OCCASIONAL /lpf (FEW) 10/31/16 23:00 Urine Bacteria OCCASIONAL /hpf (NONE SEEN) 10/31/16 23:00 RPR NONREACTIVE (NONREACTIVE) 10/31/16 20:01 - Physical Exam Vitals and I&O: Vital Signs Temp 97.2 F 11/08/16 06:25 Pulse 92 11/08/16 06:25 Resp 20 11/08/16 06:25 BP 130/86 11/08/16 06:25 Pulse Ox 99 11/08/16 06:25 Intake & Output 11/07/16 11/07/16 11/08/16 06:59 18:59 06:59 Intake Total 2400 120 Balance 2400 120 Intake: Oral 2400 120 Other: # Voids 4 3 # Bowel Movements 1 Active Medications: Current Medications Acetaminophen (Tylenol) 650 mg PO Q4HR PRN PRN Reason: Mild Pain / Temp above 100 Stop: 12/30/16 23:54 Al Hydrox/Mg Hydrox/Simethicone (Maalox) 30 ml PO Q4HR PRN PRN Reason: GI DISTRESS Stop: 12/30/16 23:54 Carvedilol (Coreg) 12.5 mg PO BID [facility] Stop: 01/01/17 08:59 Last Admin: 11/07/16 17:25 Dose: 12.5 mg Donepezil HCl (Aricept) 10 mg PO HS MOUSTAPHA Stop: 01/04/17 10:10 Last Admin: 11/07/16 20:10 Dose: 10 mg Hydralazine HCl (Apresoline) 10 mg PO BID MOUSTAPHA Stop: 01/01/17 08:59 Last Admin: 11/07/16 17:24 Dose: 10 mg Hydrochlorothiazide (Hctz) 12.5 mg PO DAILY [facility] Stop: 01/01/17 08:59 Last Admin: 11/07/16 09:08 Dose: 12.5 mg Insulin Aspart (Novolog Insulin Sliding Scale) 0 units SUBQ ACHS MOUSTAPHA PRN Reason: Protocol Stop: 12/31/16 07:29 Last Admin: 11/07/16 20:21 Dose: 2 units Insulin Detemir (Levemir Insulin) 11 units SUBQ DAILY [facility] PRN Reason: Protocol Stop: 12/31/16 08:59 Last Admin: 11/07/16 09:11 Dose: Not Given Lisinopril (Zestril) 20 mg PO DAILY [facility] Stop: 01/01/17 08:59 Last Admin: 11/07/16 09:12 Dose: 20 mg Lorazepam (Ativan) 0.5 mg PO Q4HR PRN; Protocol PRN Reason: Anxiety Stop: 11/30/16 23:54 Metformin HCl (Glucophage) 850 mg PO TIDWM [facility] Stop: 01/06/17 11:59 Last Admin: 11/07/16 17:25 Dose: 850 mg Multivitamins/Vitamin C (Theragran) 1 tab PO DAILY MOUSTAPHA Stop: 12/31/16 08:59 Last Admin: 11/07/16 09:12 Dose: 1 tab Risperidone (Risperdal) 0.5 mg PO BID MOUSTAPHA PRN Reason: Protocol Stop: 12/31/16 16:59 Last Admin: 11/07/16 17:25 Dose: 0.5 mg Rivaroxaban (Xarelto) 10 mg PO DAILY [facility] Stop: 01/07/17 08:59 Tramadol HCl (Ultram) 25 mg PO Q4HR PRN PRN Reason: Pain (Moderate) Stop: 12/31/16 20:06 Tramadol HCl (Ultram) 50 mg PO Q4HR PRN PRN Reason: Pain (Severe) Stop: 12/31/16 20:06 Zolpidem Tartrate (Ambien) 5 mg PO HS PRN PRN Reason: Insomnia Stop: 12/30/16 23:54 General: Alert, No acute distress HEENT: Atraumatic, PERRLA, EOMI Neck: Supple Cardiovascular: Regular rate, Normal S1, Normal S2 Lungs: Clear to auscultation Abdomen: Bowel sounds, Soft, Other (no hepatosplenomegaly) Extremities: Other (no clubbing, cyanosis, edema.) Neurological: Normal speech, Cranial nerves 3-12 NL, Other (lower extremity weakness.) Skin: Significant lesion (dark pigmented lesions on both lower extremities.) Psych/Mental Status: Mood NL Assessment/Plan - Assessment Assessment: Diabetes mellitus. Hypertension. Episode of dizziness . Paroxysmal A fib. Coronary artery disease. Paroxysmal atrial fibrillation. DJD. Psychiatric disorder. Fall risk Debility - Plan Plan: Monitor glucose, vital signs, behavior. Sliding scale insulin. Oral hypoglycemic agent. Since CT head negative will start anticoagulation with xarelto. Fall precautions. Antihypertensive medications. Monitor for falls. General nursing care. Psychiatric medications and follow-up. Medications reviewed. Symptoms control. Physical therapy and occupational therapy. Care plan reviewed and discussed. Nutritional Asmnt/Malnutr-PDOC - Dietary Evaluation Malnutrition Findings (Please click <Entered> for more info): Nutritional Asmnt/Malnutrition Start: 11/01/16 12: 43 Text: Status: Complete Freq: Document 11/01/16 12:43 GSUN (Rec: 11/01/16 12:59 GSUN [id number]) Nutritional Asmnt/Malnutrition Patient General Information Nutritional Screening High Risk Screening Diagnosis Reason for visit: psychosis Pertinent Medical Hx/Surgical Hx CAD, HTN, psychosis, dementia, DM Subjective Information 71 year old male from SNF. Spoke to pt in laisha chair in rec room. Pt is a questionable historian, goes off topic, fell asleep mid sentence several times, inappropriate for nutrition edu. Pt stated good appetite, breakfast was great. Pt reported UBW 214lb, admitted to recent weight loss , however could not eleborate. Pt appeared overweight, no significant wasting noted. Current Diet Order/ Nutrition Support Ground, cardiac, Boost Glucose Control BID Pertinent Medications Maalox, Novolog, Levemir, MOM, Glucophage, Theragran Pertinent Labs 10/31: A1c 7.2H, glucose 191H Nutritional Hx/Data Height 1.88 m Height (Calculated Centimeters) 188.0 Current Weight (lbs) 97.069 kg Weight (Calculated Kilograms) 97.1 Weight (Calculated Grams) 18605.8 Usual body Weight (lbs) 214 [place] Body Weight 190 Recent Weight Change Yes Weight Status Overweight GI Symptoms Cultural/Ethnic/Anabaptist Belief Pt dislikes spinach and cauliflower. Skin Integrity/Comment: Deangelo Alcala. 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 Problem Problem Altered nturition related laboratory values related to Etiology DM aeb Signs/Symptoms: A1c 7.2, glucose 191H Intervention/Recommendation Comments 1. Recommend [id number] in addition to current diet order . Expected Outcomes/Goals Expected Outcomes/Goals 1. PO intake to meet at least 75% of estimated nutritional needs.
[2016-11-08] MEDS: INSULIN ASPART SLIDING SCALE 100 UNITS/ML UNIT SUBQ SCH ×4 (06:57→20:29)
[2016-11-08] MEDS: Multivitamin Tab PO SCH (08:23)
[2016-11-08] MEDS: Insulin Detemir 100 units/mL 10mL Vial SUBQ SCH (11:34)
[2016-11-08 19:06] LABS: ALB/GLOB RATIO 1.2 (1.0-1.8); ALKALINE PHOSPHATASE 79 U/L (34-104); ANION GAP 8.8 (7.0-16.0); BILIRUBIN,TOTAL 0.5 mg/dL (0.3-1.0); BUN - UREA NITROGEN 23 mg/dL (7-25); BUN/CREATININE RATIO 28.8; CALCIUM SERUM 10.1 mg/dL (8.6-10.3); CARBON DIOXIDE 25.2 mEq/L (21.0-31.0); CHLORIDE 103 mEq/L (98-107); CREATININE - SERUM 0.8 mg/dL (0.7-1.3); GLUCOSE 258 mg/dL (70-105); SGOT 15 U/L (13-39); SGPT/ALT 24 U/L (7-52); SODIUM SERUM 133 mEq/L (136-145)
[2016-11-08 19:07] LABS: AMYLASE SERUM 39 U/L (29-103); LIPASE 22 U/L (11-82)
--- NOTE | 2016-11-09 14:34 | Diagnostic Imaging Report ---
KUB abdominal film (portable) HISTORY: Vomiting The exam demonstrates multiple loops of mildly dilated small bowel along with mildly dilated large bowel. Findings may be associated with an adynamic ileus. Obstruction cannot be definitely excluded. No free intraperitoneal air. IMPRESSION: 1. Mildly dilated large and small bowel. Changes may be related to an a dynamic ileus. However, obstruction cannot be definitely excluded. Clinical correlation and follow-up recommended.
== END 2016-11-08 21:00 | disposition short-term general hospital (02) | DRG 885 ==
LOC: ER 19:16 → GERO 23:10
PROVIDERS: ADMIT Psychiatry & Neurology Psychiatry; ATTEND Psychiatry & Neurology Psychiatry
DX: F29 Unspecified psychosis not due to a substance or known physiological condition (principal); F03.90 Unspecified dementia, unspecified severity, without behavioral disturbance, psychotic disturbance, mood disturbance, and anxiety; I48.0 Paroxysmal atrial fibrillation; I10 Essential (primary) hypertension; I25.10 Atherosclerotic heart disease of native coronary artery without angina pectoris; E11.9 Type 2 diabetes mellitus without complications; M19.90 Unspecified osteoarthritis, unspecified site; R53.81 Other malaise; R42 Dizziness and giddiness; Z88.5 Allergy status to narcotic agent; Z79.4 Long term (current) use of insulin; Z91.81 History of falling
CPT/HCPCS: 36415-UA; 70450-TC; 71010-TC; 74000-TC; 80053-TC; 80061-TC; 81001-TC; 82150-TC; 82948-90; 83036-90; 83690-TC; 84443-TC; 84484-TC; 85025-TC; 85379-TC; 85610-TC; 85730-TC; 86592-TC; 93005; 97530; J0696; J1815; J2060; X3904; Z7610

== ENCOUNTER 2016-11-08 20:43 | Inpatient (IN) | payer MEDICARE, MEDICAID ==
[2016-11-08] MEDS ORDERED: Morphine Sulfate 2 mg/mL 1mL Syr IVP PRN (21:46)
[2016-11-09] MEDS: D5-0.45NS 1,000 ML IV SCH ×2 (00:14→10:19)
[2016-11-09] MEDS ORDERED: Piperacillin Sodium/Tazobact 3.375 gm Vial IV ONE (02:40)
[2016-11-09 04:24] VITALS: BP 130/80
[2016-11-09] MEDS: INSULIN ASPART, RECOMBINANT 100 UNITS/ML SUBQ SCH ×4 (08:00→21:32)
--- NOTE | 2016-11-09 08:41 | General Progress Note ---
Subjective - Review of Systems Service Date: 11/09/16 Events since last encounter: came in for abdominal pain and vomiting ? patient not well oriented No dictation from ER or history, no labs CT scan - noted, has right inguinal hernia PE abdomen is negative, has right inguinal hernia which is non tender Will await further work up Objective - Results Recent Labs: Laboratory Last Values POC Glucose 229 MG/DL (70 - 105) H 11/09/16 06:44 - Physical Exam Vitals and I&O: Vital Signs Temp 98.6 F 11/09/16 04:00 Pulse 97 11/09/16 04:00 Resp 20 11/09/16 04:00 BP 130/80 11/09/16 04:23 Pulse Ox 94 11/09/16 04:00 Intake & Output 11/08/16 11/09/16 11/09/16 18:59 06:59 18:59 Intake Total 50 Balance 50 Intake: Intake, IV Amount 50 Piperacillin Sodium/ 50 Tazobact 3.375 gm In Sodium Chloride 0.9% 50 ml @ 100 mls/hr IV Q6HR [facility] Rx#:[id number] Other: Stool Characteristics Liquid Brown Active Medications: Current Medications Acetaminophen (Tylenol 650mg Supp) 650 mg RC Q6H PRN PRN Reason: Mild Pain/Headache/T above 101 Stop: 01/07/17 21:45 Carvedilol (Coreg) 12.5 mg PO BID [facility] Stop: 01/08/17 08:59 Dextrose/Sodium Chloride (D5-0.45ns) 1,000 mls @ 100 mls/hr IV .Q10H [facility] Stop: 01/07/17 21:59 Last Admin: 11/09/16 00:14 Dose: 100 mls/hr Piperacillin Sod/Tazobactam (Sod 3.375 gm/ Sodium Chloride) 50 mls @ 100 mls/ hr IV Q6HR [facility] Stop: 01/08/17 00:00 Last Infusion: 11/09/16 03:35 Dose: Infused Insulin Aspart (Novolog) 0 units SUBQ ACHS MOUSTAPHA PRN Reason: Protocol Stop: 01/08/17 07:29 Lorazepam (Ativan) 1 mg IVP Q4H PRN; Protocol PRN Reason: Anxiety/Agitation Stop: 01/07/17 21:45 Morphine Sulfate (Morphine) 2 mg IVP Q4H PRN PRN Reason: Severe Pain Stop: 01/07/17 21:45 Ondansetron HCl (Zofran) 4 mg IVP Q6H PRN PRN Reason: Nausea / Vomiting Stop: 01/07/17 21:45 Pantoprazole Sodium (Protonix) 40 mg IVP DAILY MOUSTAP[facility] Stop: 01/08/17 08:59 Risperidone (Risperdal) 0.5 mg PO BID MOUSTAPHA PRN Reason: Protocol Stop: 01/08/17 08:59
[2016-11-09 08:46] LABS: % BASOPHILS 0.8 % (0.0-2.0); % EOSINOPHILS 0.3 % (0.0-5.0); % LYMPHOCYTES 9.9 % (20.0-50.0); % MONOCYTES 4.2 % (2.0-10.0); % NEUTROPHILS 84.8 % (40.0-80.0); HEMATOCRIT 40.3 % (39.0-49.0); HEMOGLOBIN 13.4 gm/dL (12.6-17.4); MEAN CELL VOLUME 93.7 fl (80-99); MEAN CORPUSCULAR HEMOGLOBIN 31.2 pg (27.0-31.0); MEAN CORPUSCULAR HGB CONC 33.3 pg (28.0-36.0); MEAN PLATELET VOLUME 9.3 fl; NEUTROPHILE ABSOLUTE 9.9 Th/cmm (1.8-8.0); PLATELET COUNT 249 Th/cmm (150-400); RED CELL DISTRIBUTION WIDTH 12.1 % (11.5-20.0); WHITE BLOOD COUNT 11.7 Th/cmm (4.8-10.8)
[2016-11-09 09:09] LABS: ALB/GLOB RATIO 1.3 (1.0-1.8); ALKALINE PHOSPHATASE 64 U/L (34-104); ANION GAP 6.4 (7.0-16.0); BILIRUBIN,TOTAL 0.5 mg/dL (0.3-1.0); BUN - UREA NITROGEN 32 mg/dL (7-25); CALCIUM SERUM 9.3 mg/dL (8.6-10.3); CARBON DIOXIDE 28.2 mEq/L (21.0-31.0); CHLORIDE 105 mEq/L (98-107); GLUCOSE 213 mg/dL (70-105); MAGNESIUM 1.9 mg/dL (1.9-2.7); POTASSIUM SERUM 3.6 mEq/L (3.5-5.1); SGOT 13 U/L (13-39); SGPT/ALT 20 U/L (7-52); SODIUM SERUM 136 mEq/L (136-145)
--- NOTE | 2016-11-09 11:47 | History and Physical ---
History of Present Illness - HPI Chief Complaint: Transferred to [facility] floor for evaluation of abnormal x-ray and lab HPI: 71-year-old male seen by me at [facility] for medical management patient has complex medical history hours following this patient's at [facility]ychiatric unit. I did receive a call from nursing staff patient was having up nausea and vomiting and his abdomen was distended. Based on that I ordered lab test and KUB. His test revealed patient had a dilated bowels. There is possible small bowel obstruction or large bowel obstruction so patient was transferred to medical floor for further evaluation and management. 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 GI: Report: No Pertinent Hx Psych: Report: Depression, Psychosis Musculoskeletal: Report: Osteoarthritis Rheumatologic: Report: No pertinent Hx Infectious Disease: Report: No Pertinent Hx Renal/: Report: No Pertinent Hx Endocrine: Report: Diabetes - Past Surgical History Past Surgical History: No pertinent Hx Family Medical History - Family Member Mother History Unknown: Yes Ethnicity: Non- Living Status: Unknown Hx Family Cancer: No (unknown) Hx Family Coronary Artery Disease: No (unknown) Hx Family Congestive Heart Failure: No (unknown) Hx Family Hypertension: Yes (unknown) Hx Family Stroke: No (unknown) Hx Family Diabetes: Yes (unknown) Hx Family Seizures: No (unknown) Hx Family Dementia: No (unknown) Hx Family AIDS: (unknown) Hx Family COPD: (unknown) Hx Family Hepatitis: (unknown) Hx Family Psychiatric Problems: (unknown) Hx Family Tuberculosis: (unknown) Social History Smoke: Quit Alcohol: None Drugs: None Lives: Correction - Medications Home Medications: Home Medication Medication Instructions Recorded Type Carvedilol [Coreg] 12.5 mg PO BID 10/31/16 History Diltiazem HCl [Diltiazem HCl] 360 mg PO DAILY 10/31/16 History Hydralazine [Apresoline] 10 mg PO BID 10/31/16 History Hydrochlorothiazide 12.5 mg PO DAILY 10/31/16 History Insulin Aspart, Recombinant See Protocol SUBQ ACHS PRN 10/31/16 History [NovoLOG] Insulin Glargine,Hum.rec.anlog 11 unit SQ DAILY 10/31/16 History [Lantus Solostar] Multivitamin w/ Minerals 1 tab PO DAILY 10/31/16 History [Theragran M] Potassium Chloride 10 meq PO BID 10/31/16 History Quinapril HCl [Quinapril HCl] 40 mg PO DAILY 10/31/16 History Tramadol HCl [Ultram] 25 mg PO Q4HR PRN 10/31/16 History Tramadol HCl [Ultram] 50 mg PO Q4HR PRN 10/31/16 History metFORMIN [Glucophage] 500 mg PO BID 10/31/16 History Acetaminophen [Tylenol] 650 mg PO Q4HR PRN #1 11/08/16 Rx Al Hyd/Mg Hyd/Simethicone [Maalox] 30 ml PO Q4HR PRN #1 udc 11/08/16 Rx Carvedilol [Coreg] 12.5 mg PO BID #1 tab 11/08/16 Rx Donepezil Hcl [Aricept] 10 mg PO HS #1 tab 11/08/16 Rx Hydralazine [Apresoline*] 10 mg PO BID #1 tab 11/08/16 Rx Hydrochlorothiazide [Hctz*] 12.5 mg PO DAILY #1 tab 11/08/16 Rx Insulin Aspart Sliding Scale See Protocol SUBQ ACHS #1 unit 11/08/16 Rx [NovoLOG INSULIN SLIDING SCALE] Insulin Detemir [Levemir Insulin] 11 units SUBQ DAILY #1 vial 11/08/16 Rx Lisinopril [Zestril] 20 mg PO DAILY #1 tab 11/08/16 Rx Multivitamin [Theragran] 1 tab PO DAILY #1 tab 11/08/16 Rx Rivaroxaban [Xarelto] 10 mg PO DAILY #1 tab 11/08/16 Rx metFORMIN [Glucophage] 850 mg PO TIDWM #1 tab 11/08/16 Rx risperiDONE [RisperDAL] 0.5 mg PO BID #1 tab 11/08/16 Rx traMADol HCl [Ultram*] 25 mg PO Q4HR PRN #1 tab 11/08/16 Rx traMADol HCl [Ultram*] 50 mg PO Q4HR PRN #1 tab 11/08/16 Rx - Allergies Allergies/Adverse Reactions: Allergies Allergy/AdvReac Type Severity Reaction Status Date / Time codeine Allergy Verified 10/31/16 19:33 Review of Systems - Review of Systems Constitutional: Report: No Significant Eyes: Report: No Significant ENT: Report: No Significant Respiratory: Report: No Significant Cardiovascular: Report: No Significant Gastrointestinal: Report: Nausea, Vomiting, Abdominal Pain Genitourinary: Report: No Significant Musculoskeletal: Report: Other (leg pain.) Neurological: Report: Weakness (lower extremities.) Physical Exam - Physical Exam HEENT: Report: Ears Nose Throat within normal limits Neck: Report: Within normal limits Cardiovascular Systems: Report: Systolic Murmur, Irregular rhythm was noted Respiratory: Report: Breath Sounds are within normal limits Abdomen: Report: Tender to palpation, Guarding, Abnormal Bowel Sounds Back: Report: Inspection of back is within normal limits. Extremities: Report: Non-tender to palpation. Skin: Report: Skin Rash noted Neuro/Psych: Report: Weakness or sensory loss noted. - Lab Results All Lab Results last 24 hours: Laboratory Last Values WBC 11.7 Th/cmm (4.8-10.8) H 11/09/16 08:38 RBC 4.30 Mil/cmm (3.80-5.80) 11/09/16 08:38 Hgb 13.4 gm/dL (12.6-17.4) 11/09/16 08:38 Hct 40.3 % (39.0-49.0) 11/09/16 08:38 MCV 93.7 fl (80-99) 11/09/16 08:38 MCH 31.2 pg (27.0-31.0) H 11/09/16 08:38 MCHC Differential 33.3 pg (28.0-36.0) 11/09/16 08:38 RDW 12.1 % (11.5-20.0) 11/09/16 08:38 Plt Count 249 Th/cmm (150-400) 11/09/16 08:38 MPV 9.3 fl 11/09/16 08:38 Neutrophils % 84.8 % (40.0-80.0) H 11/09/16 08:38 Lymphocytes % 9.9 % (20.0-50.0) L 11/09/16 08:38 Monocytes % 4.2 % (2.0-10.0) 11/09/16 08:38 Eosinophils % 0.3 % (0.0-5.0) 11/09/16 08:38 Basophils % 0.8 % (0.0-2.0) 11/09/16 08:38 Sodium 136 mEq/L (136-145) 11/09/16 08:38 Potassium 3.6 mEq/L (3.5-5.1) 11/09/16 08:38 Chloride 105 mEq/L (98-107) 11/09/16 08:38 Carbon Dioxide 28.2 mEq/L (21.0-31.0) 11/09/16 08:38 Anion Gap 6.4 (7.0-16.0) L 11/09/16 08:38 BUN 32 mg/dL (7-25) H 11/09/16 08:38 Creatinine 1.0 mg/dL (0.7-1.3) 11/09/16 08:38 Est GFR ( Amer) TNP 11/09/16 08:38 Est GFR (Non-Af Amer) TNP 11/09/16 08:38 BUN/Creatinine Ratio 32.0 11/09/16 08:38 Glucose 213 mg/dL (70-105) H 11/09/16 08:38 POC Glucose 229 MG/DL (70 - 105) H 11/09/16 06:44 Calcium 9.3 mg/dL (8.6-10.3) 11/09/16 08:38 Magnesium 1.9 mg/dL (1.9-2.7) 11/09/16 08:38 Total Bilirubin 0.5 mg/dL (0.3-1.0) 11/09/16 08:38 AST 13 U/L (13-39) 11/09/16 08:38 ALT 20 U/L (7-52) 11/09/16 08:38 Alkaline Phosphatase 64 U/L (34-104) 11/09/16 08:38 Troponin I 0.01 ng/mL (0.01-0.05) 11/09/16 08:38 Total Protein 5.9 gm/dL (6.0-8.3) L 11/09/16 08:38 Albumin 3.3 gm/dL (4.2-5.5) L 11/09/16 08:38 Globulin 2.6 gm/dL 11/09/16 08:38 Albumin/Globulin Ratio 1.3 (1.0-1.8) 11/09/16 08:38 Laboratory Results - last 24 hr 11/08/16 11/09/16 11/09/16 23:27 06:44 08:38 WBC 11.7 H RBC 4.30 Hgb 13.4 Hct 40.3 MCV 93.7 MCH 31.2 H MCHC Differential 33.3 RDW 12.1 Plt Count 249 MPV 9.3 Neutrophils % 84.8 H Lymphocytes % 9.9 L Monocytes % 4.2 Eosinophils % 0.3 Basophils % 0.8 Sodium Potassium Chloride Carbon Dioxide Anion Gap BUN Creatinine Est GFR ( Amer) Est GFR (Non-Af Amer) BUN/Creatinine Ratio Glucose POC Glucose 205 H 229 H Calcium Magnesium Total Bilirubin AST ALT Alkaline Phosphatase Troponin I Total Protein Albumin Globulin Albumin/Globulin Ratio 11/09/16 11/09/16 08:38 08:38 WBC RBC Hgb Hct MCV MCH MCHC Differential RDW Plt Count MPV Neutrophils % Lymphocytes % Monocytes % Eosinophils % Basophils % Sodium 136 Potassium 3.6 Chloride 105 Carbon Dioxide 28.2 Anion Gap 6.4 L BUN 32 H Creatinine 1.0 Est GFR ( Amer) TNP Est GFR (Non-Af Amer) TNP BUN/Creatinine Ratio 32.0 Glucose 213 H POC Glucose Calcium 9.3 Magnesium 1.9 Total Bilirubin 0.5 AST 13 ALT 20 Alkaline Phosphatase 64 Troponin I 0.01 Total Protein 5.9 L Albumin 3.3 L Globulin 2.6 Albumin/Globulin Ratio 1.3 - Assessment Assessment: Abdominal distension with abnormal KUB large Vs small bowel obstruction. Diabetes mellitus. Hypertension. CAD Paroxysmal A fib. DJD Psych disorder. LE weakness Fall risk. - Plan Plan: MedSurg status. Nothing by mouth. IV fluid. IV antibiotics. GI and general surgery consultations. Monitor blood sugar. Insulin therapy. Psych consult. Proceed with CT scan of abdomen and pelvis. Follow lab. Follow csm consultant's recommendations. Appropriate home medicine reconciliation. General nursing care. Care plan reviewed and discussed with staff.
--- NOTE | 2016-11-09 14:34 | Diagnostic Imaging Report ---
CT scan abdomen and pelvis without acute venous contrast HISTORY: Pain Total DLP equals 602 CTDI equals 10.1 Axial sections were obtained from the xiphoid process down to the pubic symphysis. Limited sections of the lower chest demonstrate nonspecific somewhat linear pulmonary parenchymal densities in the lower lobes. Findings are most likely chronic. The exam of the liver demonstrates several punctate calcifications consistent with old inflammatory disease. The spleen appears normal. No focal abnormality seen within the pancreas. There is a dilated fluid and air-filled stomach. Significance should be correlated clinically. Several punctate calcifications noted in the medullary region of the right kidney. These may be vascular. Small calculi cannot be excluded. No hydronephrosis. The exam of the left kidney demonstrates an approximate 4.7 cm lobular cyst. Smaller cysts extend off the upper and lower cortex. A 1.5 cm slightly hyperdense complex lesion is noted in the lateral cortex of the left kidney. Findings may be associated with a hemorrhagic component. Follow up/monitoring recommended. A punctate calcification is seen in the medullary region. A small calculus cannot be excluded. No hydronephrosis. The right adrenal gland appears normal. There is nodular enlargement of the left adrenal gland. Finding of questionable significance. There is a moderately distended stool-filled ascending colon. The exam of the pelvis demonstrates preservation of normal fat planes no abnormal soft tissue masses. No abnormal fluid collections. Mildly distended stool-filled sigmoid colon and rectum noted. There is a small fat-containing right inguinal hernia. 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 Degenerative changes noted throughout the spine. IMPRESSION: 1. Multiple left renal cysts. In addition, a 1.5 cm complex slightly hyperdense lesion is noted in the lateral cortex. This is indeterminate. The finding may be associated with a hemorrhagic component. Follow up/monitoring recommended 2. Mildly dilated fluid and air-filled stomach. Significance should be correlated clinically. 3. Distended stool-filled ascending colon, sigmoid colon and rectum. 4. Bilateral punctate renal calcifications. These may be vascular. Small calculi cannot be excluded. No hydronephrosis. 5. Nodular enlargement of the left adrenal gland. Significance should be correlated clinically. 6. Small fat-containing right inguinal hernia 7. Prostate gland associated with radiation seeds. 8. Nonspecific somewhat linear pulmonary parenchymal densities in the lower lobes of the lungs probably chronic 9. Diffuse degenerative changes throughout the spine
[2016-11-10] MEDS: INSULIN ASPART, RECOMBINANT 100 UNITS/ML SUBQ SCH ×3 (06:43→22:20)
[2016-11-10 06:52] LABS: % BASOPHILS 0.1 % (0.0-2.0); % EOSINOPHILS 1.8 % (0.0-5.0); % LYMPHOCYTES 13.2 % (20.0-50.0); % MONOCYTES 5.8 % (2.0-10.0); % NEUTROPHILS 79.1 % (40.0-80.0); HEMATOCRIT 39.9 % (39.0-49.0); HEMOGLOBIN 13.1 gm/dL (12.6-17.4); MEAN CELL VOLUME 93.5 fl (80-99); MEAN CORPUSCULAR HEMOGLOBIN 30.8 pg (27.0-31.0); MEAN CORPUSCULAR HGB CONC 32.9 pg (28.0-36.0); MEAN PLATELET VOLUME 8.7 fl; NEUTROPHILE ABSOLUTE 8.7 Th/cmm (1.8-8.0); PLATELET COUNT 234 Th/cmm (150-400); RED BLOOD COUNT 4.26 Mil/cmm (3.80-5.80); RED CELL DISTRIBUTION WIDTH 11.9 % (11.5-20.0); WHITE BLOOD COUNT 10.9 Th/cmm (4.8-10.8)
[2016-11-10 07:28] LABS: ALKALINE PHOSPHATASE 65 U/L (34-104); ANION GAP 8.8 (7.0-16.0); BILIRUBIN,TOTAL 0.6 mg/dL (0.3-1.0); BUN - UREA NITROGEN 20 mg/dL (7-25); CALCIUM SERUM 8.8 mg/dL (8.6-10.3); CARBON DIOXIDE 26.9 mEq/L (21.0-31.0); CHLORIDE 105 mEq/L (98-107); CREATININE - SERUM 0.8 mg/dL (0.7-1.3); GLUCOSE 164 mg/dL (70-105); MAGNESIUM 1.9 mg/dL (1.9-2.7); POTASSIUM SERUM 3.7 mEq/L (3.5-5.1); SGOT 13 U/L (13-39); SGPT/ALT 18 U/L (7-52); SODIUM SERUM 137 mEq/L (136-145)
--- NOTE | 2016-11-10 07:50 | Consultation ---
Consult Note - Consult Note Service Date: 11/09/16 Consult Note: PHYSICIAN Consultation Note: Date of Admission: 11/08/16 Purpose of Consultation: Chief Complaint: History of Present Illness: Patient SAMANTHA MEDINA was admitted to location [facility] Unit I with BOWEL OBSTRUCTION. Past Medical History: Diagnoses TYPE 2 DIABETES MELLITUS WITHOUT COMPLICATIONS (11/08/16) UNSP PSYCHOSIS NOT DUE TO A SUBSTANCE OR KNOWN PHYSIOL COND (11/08/16) ESSENTIAL (PRIMARY) HYPERTENSION (11/08/16) ATHSCL HEART DISEASE OF [place] CORONARY ARTERY W/O ANG PCTRS (11/08/16) PAROXYSMAL ATRIAL FIBRILLATION (11/08/16) UNIL INGUINAL HERNIA, W/O OBST OR GANGR, NOT SPCF RECUR (11/08/16) UNSPECIFIED INTESTINAL OBSTRUCTION (11/08/16) UNSPECIFIED OSTEOARTHRITIS, UNSPECIFIED SITE (11/08/16) UNSPECIFIED ABDOMINAL PAIN (11/08/16) HISTORY OF FALLING (11/08/16) Allergies Allergy/AdvReac Type Severity Reaction Status Date / Time codeine Allergy Verified 10/31/16 19:33 Vital Signs Temp 98.7 F 11/10/16 04:00 Pulse 69 11/10/16 04:00 Resp 18 11/10/16 04:00 BP 128/69 11/10/16 04:00 Pulse Ox 95 11/10/16 04:00 Intake & Output 11/09/16 11/10/16 11/10/16 18:59 06:59 18:59 Intake Total 1050 100 Balance 1050 100 Weight (lbs) 97.069 kg 97.069 kg Intake: Intake, IV Amount 1050 100 D5-0.45NS 1,000 ml @ 100 1000 mls/hr IV .Q10H [facility] Rx#: [id number] Piperacillin Sodium/ 50 100 Tazobact 3.375 gm In Sodium Chloride 0.9% 50 ml @ 100 mls/hr IV Q6HR [facility] Rx#:[id number] Other: # Voids 2 # Bowel Movements 1 Laboratory Results - last 24 hr 11/09/16 11/09/16 11/09/16 06:44 08:38 08:38 WBC 11.7 H RBC 4.30 Hgb 13.4 Hct 40.3 MCV 93.7 MCH 31.2 H MCHC Differential 33.3 RDW 12.1 Plt Count 249 MPV 9.3 Neutrophils % 84.8 H Lymphocytes % 9.9 L Monocytes % 4.2 Eosinophils % 0.3 Basophils % 0.8 Sodium 136 Potassium 3.6 Chloride 105 Carbon Dioxide 28.2 Anion Gap 6.4 L BUN 32 H Creatinine 1.0 Est GFR ( Amer) TNP Est GFR (Non-Af Amer) TNP BUN/Creatinine Ratio 32.0 Glucose 213 H POC Glucose 229 H Calcium 9.3 Magnesium 1.9 Total Bilirubin 0.5 AST 13 ALT 20 Alkaline Phosphatase 64 Troponin I Total Protein 5.9 L Albumin 3.3 L Globulin 2.6 Albumin/Globulin Ratio 1.3 11/09/16 11/09/16 11/09/16 08:38 13:40 21:29 WBC RBC Hgb Hct MCV MCH MCHC Differential RDW Plt Count MPV Neutrophils % Lymphocytes % Monocytes % Eosinophils % Basophils % Sodium Potassium Chloride Carbon Dioxide Anion Gap BUN Creatinine Est GFR ( Amer) Est GFR (Non-Af Amer) BUN/Creatinine Ratio Glucose POC Glucose 200 H 236 H Calcium Magnesium Total Bilirubin AST ALT Alkaline Phosphatase Troponin I 0.01 Total Protein Albumin Globulin Albumin/Globulin Ratio 11/10/16 11/10/16 11/10/16 05:40 06:30 06:30 WBC 10.9 H RBC 4.26 Hgb 13.1 Hct 39.9 MCV 93.5 MCH 30.8 MCHC Differential 32.9 RDW 11.9 Plt Count 234 MPV 8.7 Neutrophils % 79.1 Lymphocytes % 13.2 L Monocytes % 5.8 Eosinophils % 1.8 Basophils % 0.1 Sodium 137 Potassium 3.7 Chloride 105 Carbon Dioxide 26.9 Anion Gap 8.8 BUN 20 Creatinine 0.8 Est GFR ( Amer) TNP Est GFR (Non-Af Amer) TNP BUN/Creatinine Ratio 25.0 Glucose 164 H POC Glucose 171 H Calcium 8.8 Magnesium 1.9 Total Bilirubin 0.6 AST 13 ALT 18 Alkaline Phosphatase 65 Troponin I Total Protein 6.1 Albumin 3.1 L Globulin 3.0 Albumin/Globulin Ratio 1.0 Home Medication Medication Instructions Recorded Type Carvedilol [Coreg] 12.5 mg PO BID 10/31/16 History Diltiazem HCl [Diltiazem HCl] 360 mg PO DAILY 10/31/16 History Hydralazine [Apresoline] 10 mg PO BID 10/31/16 History Hydrochlorothiazide 12.5 mg PO DAILY 10/31/16 History Insulin Aspart, Recombinant See Protocol SUBQ ACHS PRN 10/31/16 History [NovoLOG] Insulin Glargine,Hum.rec.anlog 11 unit SQ DAILY 10/31/16 History [Lantus Solostar] Multivitamin w/ Minerals 1 tab PO DAILY 10/31/16 History [Theragran M] Potassium Chloride 10 meq PO BID 10/31/16 History Quinapril HCl [Quinapril HCl] 40 mg PO DAILY 10/31/16 History Tramadol HCl [Ultram] 25 mg PO Q4HR PRN 10/31/16 History Tramadol HCl [Ultram] 50 mg PO Q4HR PRN 10/31/16 History metFORMIN [Glucophage] 500 mg PO BID 10/31/16 History Acetaminophen [Tylenol] 650 mg PO Q4HR PRN #1 11/08/16 Rx Al Hyd/Mg Hyd/Simethicone [Maalox] 30 ml PO Q4HR PRN #1 udc 11/08/16 Rx Carvedilol [Coreg] 12.5 mg PO BID #1 tab 11/08/16 Rx Donepezil Hcl [Aricept] 10 mg PO HS #1 tab 11/08/16 Rx Hydralazine [Apresoline*] 10 mg PO BID #1 tab 11/08/16 Rx Hydrochlorothiazide [Hctz*] 12.5 mg PO DAILY #1 tab 11/08/16 Rx Insulin Aspart Sliding Scale See Protocol SUBQ ACHS #1 unit 11/08/16 Rx [NovoLOG INSULIN SLIDING SCALE] Insulin Detemir [Levemir Insulin] 11 units SUBQ DAILY #1 vial 11/08/16 Rx Lisinopril [Zestril] 20 mg PO DAILY #1 tab 11/08/16 Rx Multivitamin [Theragran] 1 tab PO DAILY #1 tab 11/08/16 Rx Rivaroxaban [Xarelto] 10 mg PO DAILY #1 tab 11/08/16 Rx metFORMIN [Glucophage] 850 mg PO TIDWM #1 tab 11/08/16 Rx risperiDONE [RisperDAL] 0.5 mg PO BID #1 tab 11/08/16 Rx traMADol HCl [Ultram*] 25 mg PO Q4HR PRN #1 tab 11/08/16 Rx traMADol HCl [Ultram*] 50 mg PO Q4HR PRN #1 tab 11/08/16 Rx Current Medications Generic Name Dose Route Start Last Admin Trade Name Freq PRN Reason Stop Dose Admin Acetaminophen 650 mg 11/08/16 21:46 Tylenol 650mg Supp RC 01/07/17 21:45 Q6H PRN Mild Pain/Headache/T above 101 Carvedilol 12.5 mg 11/09/16 09:00 11/09/16 18:45 Coreg PO 01/08/17 08:59 12.5 mg BID [facility] Administration Dextrose/Sodium Chloride 1,000 mls @ 100 mls/hr 11/08/16 22:00 11/09/16 10:19 D5-0.45ns IV 01/07/17 21:59 100 mls/hr .Q10H [facility] Administration Piperacillin Sod/Tazobactam 50 mls @ 100 mls/hr 11/09/16 00:00 11/10/16 05:21 Sod 3.375 gm/ Sodium Chloride IV 01/08/17 00:00 100 mls/hr Q6HR [facility] Administration Insulin Aspart 0 units 11/09/16 07:30 11/10/16 06:43 Novolog SUBQ 01/08/17 07:29 Not Given ACHS [facility] Protocol Lorazepam 1 mg 11/08/16 21:46 Ativan IVP 01/07/17 21:45 Q4H PRN Anxiety/Agitation Protocol Morphine Sulfate 2 mg 11/08/16 21:46 Morphine IVP 01/07/17 21:45 Q4H PRN Severe Pain Ondansetron HCl 4 mg 11/08/16 21:46 Zofran IVP 01/07/17 21:45 Q6H PRN Nausea / Vomiting Pantoprazole Sodium 40 mg 11/09/16 09:00 11/09/16 10:15 Protonix IVP 01/08/17 08:59 40 mg DAILY [facility] Administration Risperidone 0.5 mg 11/09/16 09:00 Risperdal PO 01/08/17 08:59 BID [facility] Protocol Review of Systems: A 12 point ROS was reviewed with the pertinent positive and negatives noted in the HPI. Social History Smoking Status Unknown if ever smoked Drug Use No Alcohol Use No Family Medical History Family Medical History Start: 11/08/16 21: 21 Freq: ONCE Status: Active Document 11/08/16 21:21 [email or web address] (Rec: 11/09/16 02:28 [email or web address] ) Family Medical History Mother History Unknown Yes Ethnicity Non- Physical Exam: General: poorly oriented, awake HEENT: previous CVA Cardio: AF, CAD Respiratory: Abdominal: no pain, tenderness, right inguinal hernia not tender Genital/Urinary: Extremities: Neurological: previous CVA Assessment: abdomen is unremarkable, right inguinal hernia non-tender Plan: GI consult =- abnormal CT Signed, Gideon Ha [id number]
--- NOTE | 2016-11-10 07:53 | General Progress Note ---
Subjective - Review of Systems Service Date: 11/10/16 Subjective: has dilated SB and ascending colon with stools Plan: SBO follow thru Objective - Results Result Diagrams: 11/10/16 06:30 11/10/16 06:30 Recent Labs: Laboratory Last Values WBC 10.9 Th/cmm (4.8-10.8) H 11/10/16 06:30 RBC 4.26 Mil/cmm (3.80-5.80) 11/10/16 06:30 Hgb 13.1 gm/dL (12.6-17.4) 11/10/16 06:30 Hct 39.9 % (39.0-49.0) 11/10/16 06:30 MCV 93.5 fl (80-99) 11/10/16 06:30 MCH 30.8 pg (27.0-31.0) 11/10/16 06:30 MCHC Differential 32.9 pg (28.0-36.0) 11/10/16 06:30 RDW 11.9 % (11.5-20.0) 11/10/16 06:30 Plt Count 234 Th/cmm (150-400) 11/10/16 06:30 MPV 8.7 fl 11/10/16 06:30 Neutrophils % 79.1 % (40.0-80.0) 11/10/16 06:30 Lymphocytes % 13.2 % (20.0-50.0) L 11/10/16 06:30 Monocytes % 5.8 % (2.0-10.0) 11/10/16 06:30 Eosinophils % 1.8 % (0.0-5.0) 11/10/16 06:30 Basophils % 0.1 % (0.0-2.0) 11/10/16 06:30 Sodium 137 mEq/L (136-145) 11/10/16 06:30 Potassium 3.7 mEq/L (3.5-5.1) 11/10/16 06:30 Chloride 105 mEq/L (98-107) 11/10/16 06:30 Carbon Dioxide 26.9 mEq/L (21.0-31.0) 11/10/16 06:30 Anion Gap 8.8 (7.0-16.0) 11/10/16 06:30 BUN 20 mg/dL (7-25) 11/10/16 06:30 Creatinine 0.8 mg/dL (0.7-1.3) 11/10/16 06:30 Est GFR ( Amer) TNP 11/10/16 06:30 Est GFR (Non-Af Amer) TNP 11/10/16 06:30 BUN/Creatinine Ratio 25.0 11/10/16 06:30 Glucose 164 mg/dL (70-105) H 11/10/16 06:30 POC Glucose 171 MG/DL (70 - 105) H 11/10/16 05:40 Calcium 8.8 mg/dL (8.6-10.3) 11/10/16 06:30 Magnesium 1.9 mg/dL (1.9-2.7) 11/10/16 06:30 Total Bilirubin 0.6 mg/dL (0.3-1.0) 11/10/16 06:30 AST 13 U/L (13-39) 11/10/16 06:30 ALT 18 U/L (7-52) 11/10/16 06:30 Alkaline Phosphatase 65 U/L (34-104) 11/10/16 06:30 Troponin I 0.01 ng/mL (0.01-0.05) 11/09/16 08:38 Total Protein 6.1 gm/dL (6.0-8.3) 11/10/16 06:30 Albumin 3.1 gm/dL (4.2-5.5) L 11/10/16 06:30 Globulin 3.0 gm/dL 11/10/16 06:30 Albumin/Globulin Ratio 1.0 (1.0-1.8) 11/10/16 06:30 - Physical Exam Vitals and I&O: Vital Signs Temp 98.7 F 11/10/16 04:00 Pulse 69 11/10/16 04:00 Resp 18 11/10/16 04:00 BP 128/69 11/10/16 04:00 Pulse Ox 95 11/10/16 04:00 Intake & Output 11/09/16 11/10/16 11/10/16 18:59 06:59 18:59 Intake Total 1050 100 Balance 1050 100 Weight (lbs) 97.069 kg 97.069 kg Intake: Intake, IV Amount 1050 100 D5-0.45NS 1,000 ml @ 100 1000 mls/hr IV .Q10H [facility] Rx#: [id number] Piperacillin Sodium/ 50 100 Tazobact 3.375 gm In Sodium Chloride 0.9% 50 ml @ 100 mls/hr IV Q6HR [facility] Rx#:[id number] Other: # Voids 2 # Bowel Movements 1 Active Medications: Current Medications Acetaminophen (Tylenol 650mg Supp) 650 mg RC Q6H PRN PRN Reason: Mild Pain/Headache/T above 101 Stop: 01/07/17 21:45 Carvedilol (Coreg) 12.5 mg PO BID [facility] Stop: 01/08/17 08:59 Last Admin: 11/09/16 18:45 Dose: 12.5 mg Dextrose/Sodium Chloride (D5-0.45ns) 1,000 mls @ 100 mls/hr IV .Q10H [facility] Stop: 01/07/17 21:59 Last Admin: 11/09/16 10:19 Dose: 100 mls/hr Piperacillin Sod/Tazobactam (Sod 3.375 gm/ Sodium Chloride) 50 mls @ 100 mls/ hr IV Q6HR [facility] Stop: 01/08/17 00:00 Last Admin: 11/10/16 05:21 Dose: 100 mls/hr Insulin Aspart (Novolog) 0 units SUBQ ACHS [facility] PRN Reason: Protocol Stop: 01/08/17 07:29 Last Admin: 11/10/16 06:43 Dose: Not Given Lorazepam (Ativan) 1 mg IVP Q4H PRN; Protocol PRN Reason: Anxiety/Agitation Stop: 01/07/17 21:45 Morphine Sulfate (Morphine) 2 mg IVP Q4H PRN PRN Reason: Severe Pain Stop: 01/07/17 21:45 Ondansetron HCl (Zofran) 4 mg IVP Q6H PRN PRN Reason: Nausea / Vomiting Stop: 01/07/17 21:45 Pantoprazole Sodium (Protonix) 40 mg IVP DAILY [facility] Stop: 01/08/17 08:59 Last Admin: 11/09/16 10:15 Dose: 40 mg Risperidone (Risperdal) 0.5 mg PO BID [facility] PRN Reason: Protocol Stop: 01/08/17 08:59
[2016-11-10] MEDS ORDERED: Diatrizoate Meglumine/Diatri 30 mL Sol RC ONE (08:26)
[2016-11-10] MEDS: D5-0.45NS 1,000 ML IV SCH (16:40)
--- NOTE | 2016-11-10 18:48 | General Progress Note ---
Subjective - Review of Systems Subjective: Patient is seen and examined. Surgical consult note reviewed. No new complaints. Small bowel series has been ordered. Objective - Results Result Diagrams: 11/10/16 06:30 11/10/16 06:30 Recent Labs: Laboratory Last Values WBC 10.9 Th/cmm (4.8-10.8) H 11/10/16 06:30 RBC 4.26 Mil/cmm (3.80-5.80) 11/10/16 06:30 Hgb 13.1 gm/dL (12.6-17.4) 11/10/16 06:30 Hct 39.9 % (39.0-49.0) 11/10/16 06:30 MCV 93.5 fl (80-99) 11/10/16 06:30 MCH 30.8 pg (27.0-31.0) 11/10/16 06:30 MCHC Differential 32.9 pg (28.0-36.0) 11/10/16 06:30 RDW 11.9 % (11.5-20.0) 11/10/16 06:30 Plt Count 234 Th/cmm (150-400) 11/10/16 06:30 MPV 8.7 fl 11/10/16 06:30 Neutrophils % 79.1 % (40.0-80.0) 11/10/16 06:30 Lymphocytes % 13.2 % (20.0-50.0) L 11/10/16 06:30 Monocytes % 5.8 % (2.0-10.0) 11/10/16 06:30 Eosinophils % 1.8 % (0.0-5.0) 11/10/16 06:30 Basophils % 0.1 % (0.0-2.0) 11/10/16 06:30 Sodium 137 mEq/L (136-145) 11/10/16 06:30 Potassium 3.7 mEq/L (3.5-5.1) 11/10/16 06:30 Chloride 105 mEq/L (98-107) 11/10/16 06:30 Carbon Dioxide 26.9 mEq/L (21.0-31.0) 11/10/16 06:30 Anion Gap 8.8 (7.0-16.0) 11/10/16 06:30 BUN 20 mg/dL (7-25) 11/10/16 06:30 Creatinine 0.8 mg/dL (0.7-1.3) 11/10/16 06:30 Est GFR ( Amer) TNP 11/10/16 06:30 Est GFR (Non-Af Amer) TNP 11/10/16 06:30 BUN/Creatinine Ratio 25.0 11/10/16 06:30 Glucose 164 mg/dL (70-105) H 11/10/16 06:30 POC Glucose 214 MG/DL (70 - 105) H 11/10/16 16:05 Calcium 8.8 mg/dL (8.6-10.3) 11/10/16 06:30 Magnesium 1.9 mg/dL (1.9-2.7) 11/10/16 06:30 Total Bilirubin 0.6 mg/dL (0.3-1.0) 11/10/16 06:30 AST 13 U/L (13-39) 11/10/16 06:30 ALT 18 U/L (7-52) 11/10/16 06:30 Alkaline Phosphatase 65 U/L (34-104) 11/10/16 06:30 Troponin I 0.01 ng/mL (0.01-0.05) 11/09/16 08:38 Total Protein 6.1 gm/dL (6.0-8.3) 11/10/16 06:30 Albumin 3.1 gm/dL (4.2-5.5) L 11/10/16 06:30 Globulin 3.0 gm/dL 11/10/16 06:30 Albumin/Globulin Ratio 1.0 (1.0-1.8) 11/10/16 06:30 - Physical Exam Vitals and I&O: Vital Signs Temp 98.4 F 11/10/16 12:00 Pulse 93 11/10/16 16:31 Resp 20 11/10/16 12:00 BP 139/79 11/10/16 16:31 Pulse Ox 96 11/10/16 12:00 Intake & Output 11/09/16 11/10/16 11/10/16 18:59 06:59 18:59 Intake Total 1050 1150 50 Balance 1050 1150 50 Weight (lbs) 97.069 kg 97.069 kg Intake: Intake, IV Amount 1050 1150 50 D5-0.45NS 1,000 ml @ 100 1000 1000 mls/hr IV .Q10H [facility] Rx#: [id number] Piperacillin Sodium/ 50 150 50 Tazobact 3.375 gm In Sodium Chloride 0.9% 50 ml @ 100 mls/hr IV Q6HR [facility] Rx#:[id number] Oral 0 Other: # Voids 2 # Bowel Movements 1 Active Medications: Current Medications Acetaminophen (Tylenol 650mg Supp) 650 mg RC Q6H PRN PRN Reason: Mild Pain/Headache/T above 101 Stop: 01/07/17 21:45 Carvedilol (Coreg) 12.5 mg PO BID [facility] Stop: 01/08/17 08:59 Last Admin: 11/10/16 16:31 Dose: 12.5 mg Dextrose/Sodium Chloride (D5-0.45ns) 1,000 mls @ 100 mls/hr IV .Q10H [facility] Stop: 01/07/17 21:59 Last Admin: 11/10/16 16:40 Dose: 100 mls/hr Piperacillin Sod/Tazobactam (Sod 3.375 gm/ Sodium Chloride) 50 mls @ 100 mls/ hr IV Q6HR [facility] Stop: 01/08/17 00:00 Last Admin: 11/10/16 18:28 Dose: 100 mls/hr Insulin Aspart (Novolog) 0 units SUBQ ACHS [facility] PRN Reason: Protocol Stop: 01/08/17 07:29 Last Admin: 11/10/16 12:42 Dose: 6 units Lorazepam (Ativan) 1 mg IVP Q4H PRN; Protocol PRN Reason: Anxiety/Agitation Stop: 01/07/17 21:45 Morphine Sulfate (Morphine) 2 mg IVP Q4H PRN PRN Reason: Severe Pain Stop: 01/07/17 21:45 Ondansetron HCl (Zofran) 4 mg IVP Q6H PRN PRN Reason: Nausea / Vomiting Stop: 01/07/17 21:45 Pantoprazole Sodium (Protonix) 40 mg IVP DAILY [facility] Stop: 01/08/17 08:59 Last Admin: 11/10/16 09:35 Dose: 40 mg Risperidone (Risperdal) 0.5 mg PO BID [facility] PRN Reason: Protocol Stop: 01/08/17 08:59 Last Admin: 11/10/16 16:31 Dose: 0.5 mg General: Alert, Cooperative, No acute distress HEENT: Atraumatic, PERRLA, EOMI Neck: Supple Cardiovascular: Regular rate, Normal S1, Normal S2 Lungs: Clear to auscultation Abdomen: Bowel sounds, Soft, Distended Extremities: Clubbing, Other (chronic venous stasis changes on both lower extremity) Neurological: Other (lower extremity weakness) Skin: Other (no significant lesion) Psych/Mental Status: Other (labile mood) Assessment/Plan - Assessment Assessment: Large Bowel obstruction by CT scan of abdomen and pelvis. Diabetes mellitus. Hypertension. CAD Paroxysmal A fib. DJD Psych disorder. LE weakness Fall risk. - Plan Plan: MedSurg status. Nothing by mouth. IV fluid. IV antibiotics. Upper GI with small bowel series pending Monitor blood sugar. Insulin therapy. Psych consult. Follow lab. Follow [employer] consultant's recommendations. Appropriate home medicine reconciliation. General nursing care. Care plan reviewed and discussed with staff.
[2016-11-11] MEDS: D5-0.45NS 1,000 ML IV SCH ×2 (04:09→15:01)
[2016-11-11] MEDS: INSULIN ASPART, RECOMBINANT 100 UNITS/ML SUBQ SCH ×3 (06:30→16:18)
[2016-11-11 07:13] LABS: % BASOPHILS 0.6 % (0.0-2.0); % EOSINOPHILS 0.1 % (0.0-5.0); % LYMPHOCYTES 11.5 % (20.0-50.0); % MONOCYTES 7.4 % (2.0-10.0); % NEUTROPHILS 80.4 % (40.0-80.0); HEMATOCRIT 37.4 % (39.0-49.0); HEMOGLOBIN 12.5 gm/dL (12.6-17.4); MEAN CELL VOLUME 93.3 fl (80-99); MEAN CORPUSCULAR HEMOGLOBIN 31.2 pg (27.0-31.0); MEAN CORPUSCULAR HGB CONC 33.5 pg (28.0-36.0); MEAN PLATELET VOLUME 9.1 fl; NEUTROPHILE ABSOLUTE 8.4 Th/cmm (1.8-8.0); PLATELET COUNT 233 Th/cmm (150-400); RED BLOOD COUNT 4.01 Mil/cmm (3.80-5.80); RED CELL DISTRIBUTION WIDTH 12.3 % (11.5-20.0); WHITE BLOOD COUNT 10.5 Th/cmm (4.8-10.8)
[2016-11-11 07:47] LABS: ALB/GLOB RATIO 1.2 (1.0-1.8); ALKALINE PHOSPHATASE 62 U/L (34-104); ANION GAP 6.3 (7.0-16.0); BILIRUBIN,TOTAL 0.8 mg/dL (0.3-1.0); BUN - UREA NITROGEN 19 mg/dL (7-25); BUN/CREATININE RATIO 21.1; CALCIUM SERUM 8.7 mg/dL (8.6-10.3); CHLORIDE 107 mEq/L (98-107); CREATININE - SERUM 0.9 mg/dL (0.7-1.3); GLUCOSE 183 mg/dL (70-105); POTASSIUM SERUM 3.3 mEq/L (3.5-5.1); SGOT 18 U/L (13-39); SGPT/ALT 25 U/L (7-52); SODIUM SERUM 140 mEq/L (136-145)
--- NOTE | 2016-11-11 09:06 | General Progress Note ---
Subjective - Review of Systems Subjective: Patient is seen and examined. No new complaints. Discussed with the case management, family requesting this places to be transferred to [facility]. Objective - Results Result Diagrams: 11/11/16 06:10 11/11/16 06:10 Recent Labs: Laboratory Last Values WBC 10.5 Th/cmm (4.8-10.8) 11/11/16 06:10 RBC 4.01 Mil/cmm (3.80-5.80) 11/11/16 06:10 Hgb 12.5 gm/dL (12.6-17.4) L 11/11/16 06:10 Hct 37.4 % (39.0-49.0) L 11/11/16 06:10 MCV 93.3 fl (80-99) 11/11/16 06:10 MCH 31.2 pg (27.0-31.0) H 11/11/16 06:10 MCHC Differential 33.5 pg (28.0-36.0) 11/11/16 06:10 RDW 12.3 % (11.5-20.0) 11/11/16 06:10 Plt Count 233 Th/cmm (150-400) 11/11/16 06:10 MPV 9.1 fl 11/11/16 06:10 Neutrophils % 80.4 % (40.0-80.0) H 11/11/16 06:10 Lymphocytes % 11.5 % (20.0-50.0) L 11/11/16 06:10 Monocytes % 7.4 % (2.0-10.0) 11/11/16 06:10 Eosinophils % 0.1 % (0.0-5.0) 11/11/16 06:10 Basophils % 0.6 % (0.0-2.0) 11/11/16 06:10 Sodium 140 mEq/L (136-145) 11/11/16 06:10 Potassium 3.3 mEq/L (3.5-5.1) L 11/11/16 06:10 Chloride 107 mEq/L (98-107) 11/11/16 06:10 Carbon Dioxide 30.0 mEq/L (21.0-31.0) 11/11/16 06:10 Anion Gap 6.3 (7.0-16.0) L 11/11/16 06:10 BUN 19 mg/dL (7-25) 11/11/16 06:10 Creatinine 0.9 mg/dL (0.7-1.3) 11/11/16 06:10 Est GFR ( Amer) TNP 11/11/16 06:10 Est GFR (Non-Af Amer) TNP 11/11/16 06:10 BUN/Creatinine Ratio 21.1 11/11/16 06:10 Glucose 183 mg/dL (70-105) H 11/11/16 06:10 POC Glucose 212 MG/DL (70 - 105) H 11/11/16 05:32 Calcium 8.7 mg/dL (8.6-10.3) 11/11/16 06:10 Magnesium 2.0 mg/dL (1.9-2.7) 11/11/16 06:10 Total Bilirubin 0.8 mg/dL (0.3-1.0) 11/11/16 06:10 AST 18 U/L (13-39) 11/11/16 06:10 ALT 25 U/L (7-52) 11/11/16 06:10 Alkaline Phosphatase 62 U/L (34-104) 11/11/16 06:10 Troponin I 0.01 ng/mL (0.01-0.05) 11/09/16 08:38 Total Protein 5.8 gm/dL (6.0-8.3) L 11/11/16 06:10 Albumin 3.1 gm/dL (4.2-5.5) L 11/11/16 06:10 Globulin 2.7 gm/dL 11/11/16 06:10 Albumin/Globulin Ratio 1.2 (1.0-1.8) 11/11/16 06:10 - Physical Exam Vitals and I&O: Vital Signs Temp 98.7 F 11/11/16 04:00 Pulse 76 11/11/16 08:17 Resp 18 11/11/16 04:00 BP 121/71 11/11/16 08:17 Pulse Ox 96 11/11/16 04:00 Intake & Output 11/10/16 11/11/16 11/11/16 18:59 06:59 18:59 Intake Total 100 1160 Output Total 60 Balance 100 1100 Weight (lbs) 97.069 kg 99.025 kg Intake: Intake, IV Amount 100 1100 D5-0.45NS 1,000 ml @ 100 1000 mls/hr IV .Q10H [facility] Rx#: [id number] Piperacillin Sodium/ 100 100 Tazobact 3.375 gm In Sodium Chloride 0.9% 50 ml @ 100 mls/hr IV Q6HR [facility] Rx#:[id number] Oral 0 60 Output: Emesis 60 Other: # Voids 2 3 # Bowel Movements 1 3 Active Medications: Current Medications Acetaminophen (Tylenol 650mg Supp) 650 mg RC Q6H PRN PRN Reason: Mild Pain/Headache/T above 101 Stop: 01/07/17 21:45 Carvedilol (Coreg) 12.5 mg PO BID [facility] Stop: 01/08/17 08:59 Last Admin: 11/11/16 08:17 Dose: 12.5 mg Dextrose/Sodium Chloride (D5-0.45ns) 1,000 mls @ 100 mls/hr IV .Q10H [facility] Stop: 01/07/17 21:59 Last Admin: 11/11/16 04:09 Dose: 100 mls/hr Piperacillin Sod/Tazobactam (Sod 3.375 gm/ Sodium Chloride) 50 mls @ 100 mls/ hr IV Q6HR [facility] Stop: 01/08/17 00:00 Last Infusion: 11/11/16 06:00 Dose: Infused Insulin Aspart (Novolog) 0 units SUBQ ACHS [facility] PRN Reason: Protocol Stop: 01/08/17 07:29 Last Admin: 11/11/16 06:30 Dose: 4 units Lorazepam (Ativan) 1 mg IVP Q4H PRN; Protocol PRN Reason: Anxiety/Agitation Stop: 01/07/17 21:45 Morphine Sulfate (Morphine) 2 mg IVP Q4H PRN PRN Reason: Severe Pain Stop: 01/07/17 21:45 Ondansetron HCl (Zofran) 4 mg IVP Q6H PRN PRN Reason: Nausea / Vomiting Stop: 01/07/17 21:45 Last Admin: 11/10/16 23:54 Dose: 4 mg Pantoprazole Sodium (Protonix) 40 mg IVP DAILY [facility] Stop: 01/08/17 08:59 Last Admin: 11/11/16 08:13 Dose: 40 mg Risperidone (Risperdal) 0.5 mg PO BID [facility] PRN Reason: Protocol Stop: 01/08/17 08:59 Last Admin: 11/11/16 08:13 Dose: 0.5 mg General: Alert, Cooperative, No acute distress HEENT: Atraumatic, PERRLA, EOMI Neck: Supple Cardiovascular: Regular rate, Normal S1, Normal S2 Lungs: Clear to auscultation Abdomen: Bowel sounds, Soft, Distended Extremities: Clubbing, Other (chronic venous stasis changes on both lower extremity) Neurological: Other (lower extremity weakness) Skin: Other (no significant lesion) Psych/Mental Status: Other (labile mood) Assessment/Plan - Assessment Assessment: Large Bowel obstruction by CT scan of abdomen and pelvis with no surgical intervention needed. Diabetes mellitus. Hypertension. CAD Paroxysmal A fib. DJD Generalized debility Psych disorder. LE weakness Fall risk. - Plan Plan: Start by mouth diet once small bowel series is negative. IV antibiotics. Physical therapy and occupational therapy. Monitor blood sugar. Insulin therapy. Psych consult and follow-up. Follow lab and appropriate recommendations to correct abnormal lab. Follow dairy consultant's recommendations. Once stable and cleared by the dairy consultant patient will be discharged to local area [facility]. General nursing care. Care plan reviewed and discussed with staff.
[2016-11-11] MEDS ORDERED: Potassium Chloride 20 mEq ER Tab PO ONE (09:07)
--- NOTE | 2016-11-11 09:21 | Diagnostic Imaging Report ---
Study: Small bowel follow-through. HISTORY: dilated small and large bowel Findings The KUB of the abdomen reviewed. The study demonstrates distention small and large bowel loops throughout the abdomen. Bony structures unremarkable for degenerative changes lumbosacral spine. Multiple metallic seating is noted within the prostate gland. Utilizing 180 mL of Gastrografin examination small bowel follow-through was performed. The study demonstrates progression of the oral contrast with small bowel loops into the colon. There is a generalized distention of small and large bowel loops. The last film at the 4 hour interval demonstrates a contrast progression through the small bowel loops and colon into the rectum. IMPRESSION: Generalized distention of small and large bowel loops suggestive of the paralytic ileus. There is no evidence of small bowel obstruction. 4 hour interval examination demonstrates contrast material progression throughout the rectum.
--- NOTE | 2016-11-11 11:58 | General Progress Note ---
Subjective - Review of Systems Service Date: 11/11/16 Events since last encounter: SBO - paralytic ileus start Reglan p.o. Subjective: has dilated SB and ascending colon with stools Plan: SBO follow thru Objective - Results Result Diagrams: 11/11/16 06:10 11/11/16 06:10 Recent Labs: Laboratory Last Values WBC 10.5 Th/cmm (4.8-10.8) 11/11/16 06:10 RBC 4.01 Mil/cmm (3.80-5.80) 11/11/16 06:10 Hgb 12.5 gm/dL (12.6-17.4) L 11/11/16 06:10 Hct 37.4 % (39.0-49.0) L 11/11/16 06:10 MCV 93.3 fl (80-99) 11/11/16 06:10 MCH 31.2 pg (27.0-31.0) H 11/11/16 06:10 MCHC Differential 33.5 pg (28.0-36.0) 11/11/16 06:10 RDW 12.3 % (11.5-20.0) 11/11/16 06:10 Plt Count 233 Th/cmm (150-400) 11/11/16 06:10 MPV 9.1 fl 11/11/16 06:10 Neutrophils % 80.4 % (40.0-80.0) H 11/11/16 06:10 Lymphocytes % 11.5 % (20.0-50.0) L 11/11/16 06:10 Monocytes % 7.4 % (2.0-10.0) 11/11/16 06:10 Eosinophils % 0.1 % (0.0-5.0) 11/11/16 06:10 Basophils % 0.6 % (0.0-2.0) 11/11/16 06:10 Sodium 140 mEq/L (136-145) 11/11/16 06:10 Potassium 3.3 mEq/L (3.5-5.1) L 11/11/16 06:10 Chloride 107 mEq/L (98-107) 11/11/16 06:10 Carbon Dioxide 30.0 mEq/L (21.0-31.0) 11/11/16 06:10 Anion Gap 6.3 (7.0-16.0) L 11/11/16 06:10 BUN 19 mg/dL (7-25) 11/11/16 06:10 Creatinine 0.9 mg/dL (0.7-1.3) 11/11/16 06:10 Est GFR ( Amer) TNP 11/11/16 06:10 Est GFR (Non-Af Amer) TNP 11/11/16 06:10 BUN/Creatinine Ratio 21.1 11/11/16 06:10 Glucose 183 mg/dL (70-105) H 11/11/16 06:10 POC Glucose 199 MG/DL (70 - 105) H 11/11/16 10:50 Calcium 8.7 mg/dL (8.6-10.3) 11/11/16 06:10 Magnesium 2.0 mg/dL (1.9-2.7) 11/11/16 06:10 Total Bilirubin 0.8 mg/dL (0.3-1.0) 11/11/16 06:10 AST 18 U/L (13-39) 11/11/16 06:10 ALT 25 U/L (7-52) 11/11/16 06:10 Alkaline Phosphatase 62 U/L (34-104) 11/11/16 06:10 Troponin I 0.01 ng/mL (0.01-0.05) 11/09/16 08:38 Total Protein 5.8 gm/dL (6.0-8.3) L 11/11/16 06:10 Albumin 3.1 gm/dL (4.2-5.5) L 11/11/16 06:10 Globulin 2.7 gm/dL 11/11/16 06:10 Albumin/Globulin Ratio 1.2 (1.0-1.8) 11/11/16 06:10 - Physical Exam Vitals and I&O: Vital Signs Temp 99.5 F 11/11/16 11:47 Pulse 68 11/11/16 11:47 Resp 18 11/11/16 11:47 BP 130/70 11/11/16 11:47 Pulse Ox 97 11/11/16 11:47 Intake & Output 11/10/16 11/11/16 11/11/16 18:59 06:59 18:59 Intake Total 100 1160 Output Total 60 Balance 100 1100 Weight (lbs) 97.069 kg 99.025 kg Intake: Intake, IV Amount 100 1100 D5-0.45NS 1,000 ml @ 100 1000 mls/hr IV .Q10H [facility] Rx#: [id number] Piperacillin Sodium/ 100 100 Tazobact 3.375 gm In Sodium Chloride 0.9% 50 ml @ 100 mls/hr IV Q6HR [facility] Rx#:[id number] Oral 0 60 Output: Emesis 60 Other: # Voids 2 3 # Bowel Movements 1 3 Active Medications: Current Medications Acetaminophen (Tylenol 650mg Supp) 650 mg RC Q6H PRN PRN Reason: Mild Pain/Headache/T above 101 Stop: 01/07/17 21:45 Carvedilol (Coreg) 12.5 mg PO BID [facility] Stop: 01/08/17 08:59 Last Admin: 11/11/16 08:17 Dose: 12.5 mg Dextrose/Sodium Chloride (D5-0.45ns) 1,000 mls @ 100 mls/hr IV .Q10H [facility] Stop: 01/07/17 21:59 Last Admin: 11/11/16 04:09 Dose: 100 mls/hr Piperacillin Sod/Tazobactam (Sod 3.375 gm/ Sodium Chloride) 50 mls @ 100 mls/ hr IV Q6HR [facility] Stop: 01/08/17 00:00 Last Admin: 11/11/16 11:18 Dose: 100 mls/hr Insulin Aspart (Novolog) 0 units SUBQ ACHS MOUSTAPHA PRN Reason: Protocol Stop: 01/08/17 07:29 Last Admin: 11/11/16 11:22 Dose: 2 units Lorazepam (Ativan) 1 mg IVP Q4H PRN; Protocol PRN Reason: Anxiety/Agitation Stop: 01/07/17 21:45 Morphine Sulfate (Morphine) 2 mg IVP Q4H PRN PRN Reason: Severe Pain Stop: 01/07/17 21:45 Ondansetron HCl (Zofran) 4 mg IVP Q6H PRN PRN Reason: Nausea / Vomiting Stop: 01/07/17 21:45 Last Admin: 11/10/16 23:54 Dose: 4 mg Pantoprazole Sodium (Protonix) 40 mg IVP DAILY [facility] Stop: 01/08/17 08:59 Last Admin: 11/11/16 08:13 Dose: 40 mg Risperidone (Risperdal) 0.5 mg PO BID MOUSTAPHA PRN Reason: Protocol Stop: 01/08/17 08:59 Last Admin: 11/11/16 08:13 Dose: 0.5 mg General: Alert, Cooperative, No acute distress HEENT: Atraumatic, PERRLA, EOMI Neck: Supple Cardiovascular: Regular rate, Normal S1, Normal S2 Lungs: Clear to auscultation Abdomen: Bowel sounds, Soft, Distended Extremities: Clubbing, Other (chronic venous stasis changes on both lower extremity) Neurological: Other (lower extremity weakness) Skin: Other (no significant lesion) Psych/Mental Status: Other (labile mood)
--- NOTE | 2016-11-11 21:34 | Discharge Summary ---
General Discharge Summary - Discharge Summary Date of Admission: 11/08/16 Admitting Diagnosis: ABNORMAL KUB AND BOWEL OBSTRUCTION Discharge Date: 11/11/16 Discharge Diagnosis: ABDOMINAL ILEUS,PSYCH DISORDER,DM,HTN,HX OF CVA,PAROXYSMAL A FIB Laboratory Findings: Laboratory Tests 11/08/16 11/09/16 11/09/16 23:27 06:44 08:38 WBC 11.7 H RBC 4.30 Hgb 13.4 Hct 40.3 MCV 93.7 MCH 31.2 H MCHC Differential 33.3 RDW 12.1 Plt Count 249 MPV 9.3 Neutrophils % 84.8 H Lymphocytes % 9.9 L Monocytes % 4.2 Eosinophils % 0.3 Basophils % 0.8 Sodium Potassium Chloride Carbon Dioxide Anion Gap BUN Creatinine Est GFR ( Amer) Est GFR (Non-Af Amer) BUN/Creatinine Ratio Glucose POC Glucose 205 H 229 H Calcium Magnesium Total Bilirubin AST ALT Alkaline Phosphatase Troponin I Total Protein Albumin Globulin Albumin/Globulin Ratio 11/09/16 11/09/16 11/09/16 08:38 08:38 10:25 WBC RBC Hgb Hct MCV MCH MCHC Differential RDW Plt Count MPV Neutrophils % Lymphocytes % Monocytes % Eosinophils % Basophils % Sodium 136 Potassium 3.6 Chloride 105 Carbon Dioxide 28.2 Anion Gap 6.4 L BUN 32 H Creatinine 1.0 Est GFR ( Amer) TNP Est GFR (Non-Af Amer) TNP BUN/Creatinine Ratio 32.0 Glucose 213 H POC Glucose 214 H Calcium 9.3 Magnesium 1.9 Total Bilirubin 0.5 AST 13 ALT 20 Alkaline Phosphatase 64 Troponin I 0.01 Total Protein 5.9 L Albumin 3.3 L Globulin 2.6 Albumin/Globulin Ratio 1.3 11/09/16 11/09/16 11/10/16 13:40 21:29 05:40 WBC RBC Hgb Hct MCV MCH MCHC Differential RDW Plt Count MPV Neutrophils % Lymphocytes % Monocytes % Eosinophils % Basophils % Sodium Potassium Chloride Carbon Dioxide Anion Gap BUN Creatinine Est GFR ( Amer) Est GFR (Non-Af Amer) BUN/Creatinine Ratio Glucose POC Glucose 200 H 236 H 171 H Calcium Magnesium Total Bilirubin AST ALT Alkaline Phosphatase Troponin I Total Protein Albumin Globulin Albumin/Globulin Ratio 11/10/16 11/10/16 11/10/16 06:30 06:30 11:51 WBC 10.9 H RBC 4.26 Hgb 13.1 Hct 39.9 MCV 93.5 MCH 30.8 MCHC Differential 32.9 RDW 11.9 Plt Count 234 MPV 8.7 Neutrophils % 79.1 Lymphocytes % 13.2 L Monocytes % 5.8 Eosinophils % 1.8 Basophils % 0.1 Sodium 137 Potassium 3.7 Chloride 105 Carbon Dioxide 26.9 Anion Gap 8.8 BUN 20 Creatinine 0.8 Est GFR ( Amer) TNP Est GFR (Non-Af Amer) TNP BUN/Creatinine Ratio 25.0 Glucose 164 H POC Glucose 255 H Calcium 8.8 Magnesium 1.9 Total Bilirubin 0.6 AST 13 ALT 18 Alkaline Phosphatase 65 Troponin I Total Protein 6.1 Albumin 3.1 L Globulin 3.0 Albumin/Globulin Ratio 1.0 11/10/16 11/10/16 11/11/16 16:05 21:35 05:32 WBC RBC Hgb Hct MCV MCH MCHC Differential RDW Plt Count MPV Neutrophils % Lymphocytes % Monocytes % Eosinophils % Basophils % Sodium Potassium Chloride Carbon Dioxide Anion Gap BUN Creatinine Est GFR ( Amer) Est GFR (Non-Af Amer) BUN/Creatinine Ratio Glucose POC Glucose 214 H 214 H 212 H Calcium Magnesium Total Bilirubin AST ALT Alkaline Phosphatase Troponin I Total Protein Albumin Globulin Albumin/Globulin Ratio 11/11/16 11/11/16 11/11/16 06:10 06:10 10:50 WBC 10.5 RBC 4.01 Hgb 12.5 L Hct 37.4 L MCV 93.3 MCH 31.2 H MCHC Differential 33.5 RDW 12.3 Plt Count 233 MPV 9.1 Neutrophils % 80.4 H Lymphocytes % 11.5 L Monocytes % 7.4 Eosinophils % 0.1 Basophils % 0.6 Sodium 140 Potassium 3.3 L Chloride 107 Carbon Dioxide 30.0 Anion Gap 6.3 L BUN 19 Creatinine 0.9 Est GFR ( Amer) TNP Est GFR (Non-Af Amer) TNP BUN/Creatinine Ratio 21.1 Glucose 183 H POC Glucose 199 H Calcium 8.7 Magnesium 2.0 Total Bilirubin 0.8 AST 18 ALT 25 Alkaline Phosphatase 62 Troponin I Total Protein 5.8 L Albumin 3.1 L Globulin 2.7 Albumin/Globulin Ratio 1.2 11/11/16 16:06 WBC RBC Hgb Hct MCV MCH MCHC Differential RDW Plt Count MPV Neutrophils % Lymphocytes % Monocytes % Eosinophils % Basophils % Sodium Potassium Chloride Carbon Dioxide Anion Gap BUN Creatinine Est GFR ( Amer) Est GFR (Non-Af Amer) BUN/Creatinine Ratio Glucose POC Glucose 214 H Calcium Magnesium Total Bilirubin AST ALT Alkaline Phosphatase Troponin I Total Protein Albumin Globulin Albumin/Globulin Ratio Hospital Course: Patient was transfered to med surg floor from [facility] unit after patient vomited and had abnormal kub and blood tests.please see my HP for further information. Upon admission,patietn was kept NPO. IVF,IV antibiotics started.GI and General Surgery consult were requested. Appropriate home meds were reconciled. psych consult was also requested. Patient underwern CT abd and pelvis as well as small bowel series. His work up was not indicative for any surgical intervention.Patient was pl;aced on liquid diet which was advanced to as tolerated. PT was also requested. Patient's son requested him to be transfered to local [facility].Patient was accepted at [facility] and transfered there. Patint will be followed by and . Treatment: CT abd pelvis Small bowel series. Condition at Discharge: Stable Disposition: Discharge/Transfered to SNF Home Medications: Home Medication Medication Instructions Recorded Type Diltiazem HCl [Diltiazem HCl] 360 mg PO DAILY 10/31/16 History Hydralazine [Apresoline] 10 mg PO BID 10/31/16 History Hydrochlorothiazide 12.5 mg PO DAILY 10/31/16 History Insulin Aspart, Recombinant See Protocol SUBQ ACHS PRN 10/31/16 History [NovoLOG] Insulin Glargine,Hum.rec.anlog 11 unit SQ DAILY 10/31/16 History [Lantus Solostar] Multivitamin w/ Minerals 1 tab PO DAILY 10/31/16 History [Theragran M] Potassium Chloride 10 meq PO BID 10/31/16 History Quinapril HCl [Quinapril HCl] 40 mg PO DAILY 10/31/16 History Tramadol HCl [Ultram] 25 mg PO Q4HR PRN 10/31/16 History Tramadol HCl [Ultram] 50 mg PO Q4HR PRN 10/31/16 History metFORMIN [Glucophage] 500 mg PO BID 10/31/16 History Acetaminophen [Tylenol] 650 mg PO Q4HR PRN #1 11/08/16 Rx Al Hyd/Mg Hyd/Simethicone [Maalox] 30 ml PO Q4HR PRN #1 udc 11/08/16 Rx Carvedilol [Coreg] 12.5 mg PO BID #1 tab 11/08/16 Rx Donepezil Hcl [Aricept] 10 mg PO HS #1 tab 11/08/16 Rx Hydralazine [Apresoline*] 10 mg PO BID #1 tab 11/08/16 Rx Hydrochlorothiazide [Hctz*] 12.5 mg PO DAILY #1 tab 11/08/16 Rx Insulin Aspart Sliding Scale See Protocol SUBQ ACHS #1 unit 11/08/16 Rx [NovoLOG INSULIN SLIDING SCALE] Insulin Detemir [Levemir Insulin] 11 units SUBQ DAILY #1 vial 11/08/16 Rx Lisinopril [Zestril] 20 mg PO DAILY #1 tab 11/08/16 Rx Multivitamin [Theragran] 1 tab PO DAILY #1 tab 11/08/16 Rx Rivaroxaban [Xarelto] 10 mg PO DAILY #1 tab 11/08/16 Rx metFORMIN [Glucophage] 850 mg PO TIDWM #1 tab 11/08/16 Rx traMADol HCl [Ultram*] 25 mg PO Q4HR PRN #1 tab 11/08/16 Rx traMADol HCl [Ultram*] 50 mg PO Q4HR PRN #1 tab 11/08/16 Rx Acetaminophen [Tylenol 650mg Supp] 650 mg RC Q6H PRN sup 11/11/16 Rx Carvedilol [Coreg] 12.5 mg PO BID tab 11/11/16 Rx Insulin Aspart, Recombinant 0 units SUBQ ACHS unit 11/11/16 Rx [NovoLOG] Metoclopramide [Reglan] 10 mg PO TID udc 11/11/16 Rx risperiDONE [RisperDAL] 0.5 mg PO BID tab 11/11/16 Rx Consults and Follow-Up: Niles Yun [Primary Care Provider] - Instructions: Type 2 Diabetes Mellitus, Adult, Abdominal Pain, [id number], Nausea and Vomiting, Hypertension, [id number]
== END 2016-11-11 20:05 | DRG 390 ==
LOC: MSI 20:43
PROVIDERS: ADMIT Internal Medicine; ATTEND Internal Medicine
DX: K56.0 Paralytic ileus (principal); I48.0 Paroxysmal atrial fibrillation; E11.9 Type 2 diabetes mellitus without complications; I10 Essential (primary) hypertension; F32.9 Major depressive disorder, single episode, unspecified; I25.10 Atherosclerotic heart disease of native coronary artery without angina pectoris; M19.90 Unspecified osteoarthritis, unspecified site; F29 Unspecified psychosis not due to a substance or known physiological condition; Z91.81 History of falling; Z88.5 Allergy status to narcotic agent; Z86.73 Personal history of transient ischemic attack (TIA), and cerebral infarction without residual deficits; Z83.3 Family history of diabetes mellitus; Z87.891 Personal history of nicotine dependence; Z79.4 Long term (current) use of insulin
CPT/HCPCS: 36415-UA; 74250-TC; 80053-TC; 82948-90; 83735-TC; 84484-TC; 85025-TC; 97530; C9113; J0696; J1815; J2405; J2543; X3904